=== PATIENT | female | born 1935 | race Caucasian/White ===

== ENCOUNTER 2017-06-17 07:04 | Emergency (ER) | payer BC, MEDICARE, OTHER ==
--- NOTE | 2017-06-17 07:41 | EDM.PDOC ---
ED HPI GENERAL MEDICAL PROBLEM - General Chief Complaint: Lower Extremity Injury/Pain Stated Complaint: FELL YESTERDAY Time Seen by Provider: 06/17/17 07:40 Source of Information: Reports: Patient - History of Present Illness INITIAL COMMENTS - FREE TEXT/NARRATIVE: HISTORY AND PHYSICAL: History of present illness: []Patient slipped and fell in her house last night landing on her right side she complains of right hip pain, she did proceed to go to work at [email or web address] however had to leave early due to pain she presents with her daughter as such, she is able to bear weight standing still but has discomfort she rates 5 out of 10 nonradiating associated with right hip Denies other head injury or loss of consciousness no fever nausea vomiting chills sweats no chest pain shortness breath headache dizziness or palpitation about a urine symptoms Review of systems: As per history of present illness and below otherwise all systems reviewed and negative. Past medical history: As per history of present illness and as reviewed below otherwise noncontributory. Surgical history: As per history of present illness and as reviewed below otherwise noncontributory. Social history: No reported history of drug or alcohol abuse. Family history: As per history of present illness and as reviewed below otherwise noncontributory. Physical exam: HEENT: Atraumatic, normocephalic, pupils reactive, negative for conjunctival pallor or scleral icterus, mucous membranes moist, throat clear, neck supple, nontender, trachea midline. Lungs: Clear to auscultation, breath sounds equal bilaterally, chest nontender. Heart: S1S2, regular, negative for clicks, rubs, or JVD. Abdomen: Soft, nondistended, nontender. Negative for masses or hepatosplenomegaly. Negative for costovertebral tenderness. Pelvis: Stable nontender. 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: Deferred. Rectal: Deferred. Extremities: Atraumatic, negative for cords or calf pain. Neurovascular unremarkable. Neuro: Awake, alert, oriented. Cranial nerves II through XII unremarkable. Cerebellum unremarkable. Motor and sensory unremarkable throughout. Exam nonfocal. Right hip full range of passive motion she does have pain with weightbearing and difficulty ambulating due to pain she has small bruise over the greater trochanter about the size of a thumb print as well as one on the right buttock otherwise limits neurovascularly intact Diagnostics: []Right hip and pelvis Therapeutics: []Patient offered CT in declines as clinically she does have a lot of discomfort appears to be muscle at this time but urged if symptoms persist or return and we'll scan her head or follow-up with primary care in one week for recheck He is also offered admission for strengthening to assist with ADLs she refuses this We did have a walker available here in the ER as a child, she does get around much better with a walker however we could not send her home with or 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 Right Hip Pain Score (Numeric/FACES): 10 - Related Data Allergies Allergy/AdvReac Type Severity Reaction Status Date / Time No Known Allergies Allergy Verified 06/17/17 07:22 Home Meds: Home Meds Flaxseed Oil 1,000 mg PO DAILY 06/30/15 [History] Multivitamin [Multivitamins] 1 tab PO DAILY 06/30/15 [History] Triamterene/Hydrochlorothiazid [Triamterene-HCTZ 37.5-25 MG] 25 - 37.5 tab PO DAILY 06/30/15 [History] Ubidecarenone [Co Q-10] 100 mg PO DAILY 06/30/15 [History] atorvaSTATin Calcium [Atorvastatin Calcium] 10 mg PO DAILY 06/30/15 [History] Fish Oil/[place]-3 Fatty Acids [Fish Oil 1,000 MG] 0 mg PO DAILY 06/17/17 [History ] Past Medical History Other HEENT History: wears glasses, has top and bottom dentures Cardiovascular History: Reports: High Cholesterol, Hypertension Gastrointestinal History: Reports: None 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 History: Reports: None Hematologic History: Reports: Anemia Other Hematologic History: states bleeds easily, had transfusion after hysterectomy 45 yrs ago - Infectious Disease History Infectious Disease History: Reports: Chicken Pox, Measles - Past Surgical History HEENT Surgical History: Reports: Cataract Surgery Cardiovascular Surgical History: Reports: None GI Surgical History: Reports: Appendectomy Female Surgical History: Reports: Hysterectomy Social & Family History - Family History Family Medical History: Noncontributory - Tobacco Use Smoking Status *Q: Current Every Day Smoker Years of Tobacco use: 40 Packs/Tins Daily: 1 - Caffeine Use Caffeine Use: Reports: Coffee Caffeine Use Comment: 1-2pots/day - Recreational Drug Use Recreational Drug Use: No Review of Systems - Review of Systems Review Of Systems: ROS reveals no pertinent complaints other than HPI. ED EXAM, GENERAL - Physical Exam Exam: See Below Course - Vital Signs Last Recorded V/S: Last Vital Signs Temp 36.3 C 06/17/17 07:18 Pulse 73 06/17/17 07:18 Resp 21 H 06/17/17 07:18 BP 113/70 06/17/17 07:18 Pulse Ox 96 06/17/17 07:18 - Orders/Labs/Meds Orders: Active Orders 24 hr Category Date Time Status Hip Min 2V or 3V w Pelvis Rt [CR] Stat Exams 06/17/17 07:38 Ordered Departure - Departure Time of Disposition: 09:09 Disposition: Home, Self-Care 01 Condition: Good Clinical Impression: Right hip pain - Discharge Information Referrals: Jerzy Lin MD [Primary Care Provider] - Forms: ED Department Discharge Additional Instructions: Tylenol No. 3 one to 2 tabs by mouth every 6 when necessary pain #30 no refill Ice 20 minute intervals 3 times daily 7-10 days Return if symptoms persist or worsen Follow-up with primary care in one week Obtain a walker to assist with ambulation through [employer]/ [email or web address] may actually carry walkers here in town for purchase The following information is given to patients seen in the emergency department who are being discharged to home. This information is to outline your options for follow-up care. We provide all patients seen in our emergency department with a follow-up referral. The need for follow-up, as well as the timing and circumstances, are variable depending upon the specifics of your emergency department visit. If you don't have a primary care physician on staff, we will provide you with a referral. We always advise you to contact your personal physician following an emergency department visit to inform them of the circumstance of the visit and for follow-up with them and/or the need for any referrals to a consulting specialist. The emergency department will also refer you to a specialist when appropriate. This referral assures that you have the opportunity for follow-up care with a specialist. All of these measure are taken in an effort to provide you with optimal care, which includes your follow-up. Under all circumstances we always encourage you to contact your private physician who remains a resource for coordinating your care. When calling for follow-up care, please make the office aware that this follow-up is from your recent emergency room visit. If for any reason you are refused follow-up, please contact the [facility] emergency department at and asked to speak to the emergency department charge nurse. - My Orders Last 24 Hours: My Active Orders 06/17/17 07:38 Hip Min 2V or 3V w Pelvis Rt [CR] Stat - Assessment/Plan Last 24 Hours: My Active Orders 06/17/17 07:38 Hip Min 2V or 3V w Pelvis Rt [CR] Stat
[2017-06-17 09:25] VITALS: BP 140/64
--- NOTE | 2017-06-18 13:20 | CR ---
EXAM DATE: 06/17/17 PATIENT'S AGE: 81 Patient: ROLANDO RICHARDSON Facility: [place], [place] : 1935 Study: XRay Extremity [id number]/27/2017 8:25:42 AM Ordering Physician: SUGAR Final Report: HISTORY: Fall. Technique: Frontal pelvis and 2 views of the right hip. Comparison: None. Findings: No fracture or dislocation. Hip joint space is preserved bilaterally. Pubic symphysis degenerative changes. Bilateral sacroiliac joint degenerative changes. Lower lumbar spine degenerative changes. Atherosclerotic calcifications. Gas-filled loops of bowel project over the right inguinal region. Impression: 1. No acute bone abnormality. 2. Gas-filled loops of bowel project over the right inguinal region raising possibility of bowel containing inguinal hernia. Dictated by Surinder Orr MD @ Jun 17 2017 8:47AM (Electronic Signature) Report Signed by Proxy. [email or web address]
== END 2017-06-17 09:24 | disposition home or self-care (01) ==
LOC: MW.ED 07:04
DX: M25.551 Pain in right hip (principal); E78.00 Pure hypercholesterolemia, unspecified; I10 Essential (primary) hypertension; F17.210 Nicotine dependence, cigarettes, uncomplicated; Z86.2 Personal history of diseases of the blood and blood-forming organs and certain disorders involving the immune mechanism; Z98.49 Cataract extraction status, unspecified eye; Z90.49 Acquired absence of other specified parts of digestive tract; Z79.899 Other long term (current) drug therapy; Z90.710 Acquired absence of both cervix and uterus
CPT/HCPCS: 73502-26-RT; 73502-RT; 99283

== ENCOUNTER 2017-06-18 13:00 | Observation (INO) | payer BC, OTHER ==
--- NOTE | 2017-06-18 13:53 | EDM.PDOC ---
ED HPI GENERAL MEDICAL PROBLEM - General Chief Complaint: Lower Extremity Injury/Pain Stated Complaint: PAIN Time Seen by Provider: 06/18/17 13:43 - History of Present Illness INITIAL COMMENTS - FREE TEXT/NARRATIVE: HISTORY AND PHYSICAL: History of present illness: Patient is an 81-year-old white female presents for the second time who was seen recently status post fall for right hip injury she states she continues to have pain in this nearly unable to weight-bear on her right side. She denies any head or neck pain or trauma or other concern apart from a right inguinal hernia that she's had prior but is gotten larger since the fall there's been no nausea no vomiting no increased pain with this just increase in size. Review of systems: As per history of present illness and below otherwise all systems reviewed and negative. Past medical history: As per history of present illness and as reviewed below otherwise noncontributory. Surgical history: As per history of present illness and as reviewed below otherwise noncontributory. Social history: No reported history of drug or alcohol abuse. Family history: As per history of present illness and as reviewed below otherwise noncontributory. Physical exam: HEENT: Atraumatic, normocephalic, pupils reactive, negative for conjunctival pallor or scleral icterus, mucous membranes moist, throat clear, neck supple, nontender, trachea midline. Lungs: Clear to auscultation, breath sounds equal bilaterally, chest nontender. Heart: S1S2, regular, negative for clicks, rubs, or JVD. Abdomen: Soft, nondistended, nontender. Negative for masses or hepatosplenomegaly. Negative for costovertebral tenderness. Patient is noted to have a moderate size right inguinal hernia that is nontender in her right groin this is not reducible there is no erythema or warmth noted Pelvis: Stable nontender. 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: Deferred. Rectal: Deferred. Extremities: No point tenderness she has some generalized discomfort over right hip patient has difficulty weightbearing on her right side and significant difficulty with gait Neuro: Awake, alert, oriented. Cranial nerves II through XII unremarkable. Cerebellum unremarkable. Motor and sensory unremarkable throughout. Exam nonfocal. Diagnostics: CT abdomen and pelvis CT right hip x-ray right femur Therapeutics: To be determined Impression: #1 history of fall #2 acute right hip injury #3 right inguinal hernia Definitive disposition and diagnosis as appropriate pending reevaluation and review of above. - Related Data Allergies Allergy/AdvReac Type Severity Reaction Status Date / Time No Known Allergies Allergy Verified 06/17/17 07:22 Home Meds: Home Meds Flaxseed Oil 1,000 mg PO DAILY 06/30/15 [History] Multivitamin [Multivitamins] 1 tab PO DAILY 06/30/15 [History] Triamterene/Hydrochlorothiazid [Triamterene-HCTZ 37.5-25 MG] 25 - 37.5 tab PO DAILY 06/30/15 [History] Ubidecarenone [Co Q-10] 100 mg PO DAILY 06/30/15 [History] atorvaSTATin Calcium [Atorvastatin Calcium] 10 mg PO DAILY 06/30/15 [History] Fish Oil/[place]-3 Fatty Acids [Fish Oil 1,000 MG] 0 mg PO DAILY 06/17/17 [History ] Past Medical History Other HEENT History: wears glasses, has top and bottom dentures Cardiovascular History: Reports: High Cholesterol, Hypertension Gastrointestinal History: Reports: None 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 History: Reports: None Hematologic History: Reports: Anemia Other Hematologic History: states bleeds easily, had transfusion after hysterectomy 45 yrs ago - Infectious Disease History Infectious Disease History: Reports: Chicken Pox, Measles - Past Surgical History HEENT Surgical History: Reports: Cataract Surgery Cardiovascular Surgical History: Reports: None GI Surgical History: Reports: Appendectomy Female Surgical History: Reports: Hysterectomy Social & Family History - Family History Family Medical History: Noncontributory - Tobacco Use Smoking Status *Q: Current Every Day Smoker Years of Tobacco use: 40 Packs/Tins Daily: 1 - Caffeine Use Caffeine Use: Reports: Coffee Caffeine Use Comment: 1-2pots/day - Recreational Drug Use Recreational Drug Use: No Review of Systems - Review of Systems Review Of Systems: ROS reveals no pertinent complaints other than HPI. ED EXAM, GENERAL - Physical Exam Exam: See Below (See dictation) Course - Vital Signs Last Recorded V/S: Last Vital Signs Temp 36.4 C 06/18/17 13:46 Pulse 81 06/18/17 13:46 Resp 18 06/18/17 13:46 BP 133/86 06/18/17 13:46 Pulse Ox 97 06/18/17 13:46 - Orders/Labs/Meds Orders: Active Orders 24 hr Category Date Time Status EKG Documentation Completion [RC] STAT Care 06/18/17 15:51 Active CBC WITH AUTO DIFF [HEME] Stat Lab 06/18/17 15:51 Ordered COMPREHENSIVE METABOLIC PN,CMP [CHEM] Stat Lab 06/18/17 15:51 Ordered INR,PT,PROTHROMBIN TIME [COAG] Stat Lab 06/18/17 15:51 Ordered Sodium Chloride 0.9% [Saline Flush] Med 06/18/17 15:51 Active 10 ml FLUSH ASDIRECTED PRN Sodium Chloride 0.9% [Saline Flush] Med 06/18/17 15:51 Active 2.5 ml FLUSH ASDIRECTED PRN Saline Lock Insert [OM.PC] Stat Oth 06/18/17 15:51 Ordered Medication Orders Sodium Chloride (Saline Flush) 10 ml FLUSH ASDIRECTED PRN PRN Reason: Keep Vein Open Sodium Chloride (Saline Flush) 2.5 ml FLUSH ASDIRECTED PRN PRN Reason: Keep Vein Open Meds: Medications Generic Name Dose Route Start Last Admin Trade Name Freq PRN Reason Stop Dose Admin Sodium Chloride 10 ml 06/18/17 15:51 Saline Flush FLUSH ASDIRECTED PRN Keep Vein Open Sodium Chloride 2.5 ml 06/18/17 15:51 Saline Flush FLUSH ASDIRECTED PRN Keep Vein Open Departure - Departure Time of Disposition: 16:01 Disposition: Admitted As Inpatient 67 Condition: Good Clinical Impression: Hip injury, Inguinal hernia - Discharge Information Referrals: Jerzy Lin MD [Primary Care Provider] - Forms: ED Department Discharge - My Orders Last 24 Hours: My Active Orders 06/18/17 15:51 EKG Documentation Completion [RC] STAT CBC WITH AUTO DIFF [HEME] Stat COMPREHENSIVE METABOLIC PN,CMP [CHEM] Stat INR,PT,PROTHROMBIN TIME [COAG] Stat Sodium Chloride 0.9% [Saline Flush] 10 ml FLUSH ASDIRECTED PRN Sodium Chloride 0.9% [Saline Flush] 2.5 ml FLUSH ASDIRECTED PRN Saline Lock Insert [OM.PC] Stat - Assessment/Plan Last 24 Hours: My Active Orders 06/18/17 15:51 EKG Documentation Completion [RC] STAT CBC WITH AUTO DIFF [HEME] Stat COMPREHENSIVE METABOLIC PN,CMP [CHEM] Stat INR,PT,PROTHROMBIN TIME [COAG] Stat Sodium Chloride 0.9% [Saline Flush] 10 ml FLUSH ASDIRECTED PRN Sodium Chloride 0.9% [Saline Flush] 2.5 ml FLUSH ASDIRECTED PRN Saline Lock Insert [OM.PC] Stat
--- NOTE | 2017-06-18 14:48 | CT ---
CT of the abdomen and pelvis without contrast. HISTORY: Pain TECHNIQUE: Axial CT images were obtained of the abdomen and pelvis without contrast. Coronal and sagi ttal reconstructions obtained. FINDINGS: The lung bases are clear, no pleural effusion. Likely tiny hiatal hernia. The liver, spleen, and pancreas appear unremarkable for noncontrast examination. Bilateral adrenal ad enomas are noted. The gallbladder appears normal. There is no bulky retroperitoneal lymphadenopathy. No abdominal ascites. There are no calcifications noted within the kidneys or along the courses of the ureters bilaterally. There is a 3 cm left renal cortical cysts noted. The large and small bowel are normal in caliber without evidence of obstruction. Moderate diverticulo sis without evidence of diverticulitis. There is no bulky pelvic lymphadenopathy. No free fluid. No f ree air. The urinary bladder appears normal. There is a right inguinal hernia containing small bowel. The visualized osseous structures appear osteopenic. Trace anterolisthesis of L4 on L5. The right hip appears intact. IMPRESSION: 1. No acute findings within the abdomen or pelvis. 2. Diverticulosis without evidence of diverticulitis. 3. Small right inguinal hernia containing small bowel. 4. Bilateral adrenal adenomas.
--- NOTE | 2017-06-18 14:57 | CR ---
EXAMINATION: Right femur HISTORY: Pain COMPARISON: None TECHNIQUE: AP and lateral views FINDINGS: There is no acute osseous abnormality, dislocation, or fracture. The hip joint space appear s preserved. No suprapatellar joint effusion. Prominent osteoarthritic changes noted within the right knee. Overall the osseous structures appear osteopenic. Mild vascular calcifications. IMPRESSION: 1. No acute osseous abdomen identified. 2. Moderate osteoarthritic changes noted within the right knee.
[2017-06-18] MEDS ORDERED: Sodium Chloride 0.9% 2.5 ML Syringe FLUSH PRN (15:51)
[2017-06-18] MEDS ORDERED: Sodium Chloride 0.9% 10 ML Syringe FLUSH PRN (15:51)
[2017-06-18] MEDS ORDERED: Ibuprofen 400 MG Tab PO PRN (19:56)
[2017-06-18] MEDS ORDERED: Morphine 2 MG/ML Syringe IVPUSH PRN (19:56)
[2017-06-18] MEDS ORDERED: Ondansetron 4 MG/2 ML SDV IVPUSH PRN (19:56)
[2017-06-18] MEDS ORDERED: Acetaminophen 325 MG Tab PO PRN (19:56)
--- NOTE | 2017-06-18 20:03 | PCM.HP ---
H&P History of Present Illness - General Admit Problem/Dx: Admission Diagnosis/Problem Admission Diagnosis/Problem Hip injury - History of Present Illness Initial Comments - Free Text/Narative: 81 yo female who fell on her right hip three days ago. She has reported difficulty walking due to pain in her right hip. She has to bend over and hold on to something in order to ambulate. She was evaluated in the ED with femur x- ray and pelvic CT that was unremarkable. Right Groin Pain Score (Numeric/FACES): 8 - Related Data Allergies/Adverse Reactions: Allergies Allergy/AdvReac Type Severity Reaction Status Date / Time No Known Allergies Allergy Verified 06/17/17 07:22 Home Medications: Home Meds Flaxseed Oil 1,000 mg PO DAILY 06/30/15 [History] Multivitamin [Multivitamins] 1 tab PO DAILY 06/30/15 [History] Triamterene/Hydrochlorothiazid [Triamterene-HCTZ 37.5-25 MG] 25 - 37.5 tab PO DAILY 06/30/15 [History] Ubidecarenone [Co Q-10] 100 mg PO DAILY 06/30/15 [History] atorvaSTATin Calcium [Atorvastatin Calcium] 10 mg PO DAILY 06/30/15 [History] Fish Oil/[place]-3 Fatty Acids [Fish Oil 1,000 MG] 0 mg PO DAILY 06/17/17 [History ] Acetaminophen [Tylenol] 650 mg PO Q4H PRN tablet 06/19/17 [Rx] Ibuprofen [Motrin] 400 mg PO Q6H PRN tablet 06/19/17 [Rx] traMADol [Ultram] 50 mg PO Q6H PRN #14 tablet 06/19/17 [Rx] Past Medical History Other HEENT History: wears glasses, has top and bottom dentures Cardiovascular History: Reports: High Cholesterol, Hypertension Gastrointestinal History: Reports: None 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 History: Reports: None Hematologic History: Reports: Anemia Other Hematologic History: states bleeds easily, had transfusion after hysterectomy 45 yrs ago - Infectious Disease History Infectious Disease History: Reports: Chicken Pox, Measles - Past Surgical History HEENT Surgical History: Reports: Cataract Surgery Cardiovascular Surgical History: Reports: None GI Surgical History: Reports: Appendectomy Female Surgical History: Reports: Hysterectomy Social & Family History - Family History Family Medical History: Noncontributory - Tobacco Use Smoking Status *Q: Current Every Day Smoker Years of Tobacco use: 40 Packs/Tins Daily: 1 - Caffeine Use Caffeine Use: Reports: Coffee Caffeine Use Comment: 1-2pots/day - Recreational Drug Use Recreational Drug Use: No H&P Review of Systems - Review of Systems: Review Of Systems: ROS reveals no pertinent complaints other than HPI. Exam - Exam Exam: See Below - Vital Signs Vital Signs: Last Vital Signs Temp 36.1 C 06/18/17 18:30 Pulse 84 06/18/17 18:30 Resp 16 06/18/17 18:30 BP 109/74 06/18/17 18:30 Pulse Ox 97 06/18/17 18:30 Weight: 77.111 kg - Exam General: Alert, Oriented, 4 HEENT: Mucosa Moist & [place]: Supple Lungs: Clear to Auscultation, Normal Respiratory Effort Cardiovascular: Regular Rate, Regular Rhythm GI/Abdominal Exam: Normal Bowel Sounds, Soft, Non-Tender, Pelvis Stable Back Exam: Normal Inspection, Full Range of Motion Extremities: Normal Inspection, No Pedal Edema - Patient Data Lab Results Last 24 hrs: Laboratory Results - last 24 hr 06/18/17 06/18/17 06/18/17 Range/Units 16:11 16:11 16:11 WBC 5.51 (4.0-11.0) K/uL RBC 4.75 (4.30-5.90) M/uL Hgb 14.6 (12.0-16.0) g/dL Hct 42.3 (36.0-46.0) % MCV 89.1 (80.0-98.0) fL MCH 30.7 (27.0-32.0) pg MCHC 34.5 (31.0-37.0) g/dL RDW Std Deviation 48.1 (28.0-62.0) fl RDW Coeff of Alexis 15 (11.0-15.0) % Plt Count 211 (150-400) K/uL MPV 11.30 (7.40-12.00) fL Neut % (Auto) 71.9 (48.0-80.0) % Lymph % (Auto) 16.7 (16.0-40.0) % [place] % (Auto) 8.9 (0.0-15.0) % Eos % (Auto) 2.0 (0.0-7.0) % Baso % (Auto) 0.5 (0.0-1.5) % Neut # (Auto) 4.0 (1.4-5.7) K/uL Lymph # (Auto) 0.9 (0.6-2.4) K/uL [place] # (Auto) 0.5 (0.0-0.8) K/uL Eos # (Auto) 0.1 (0.0-0.7) K/uL Baso # (Auto) 0.0 (0.0-0.1) K/uL Nucleated RBC % 0.0 /100WBC Nucleated RBCs # 0 K/uL INR 0.99 (0.86-1.11) Sodium 137 (136-146) mmol/L Potassium 3.5 (3.5-5.1) mmol/L Chloride 99 (98-110) mmol/L Carbon Dioxide 26 (21-31) mmol/L BUN 28 H (6.0-23.0) mg/dL Creatinine 1.5 (0.6-1.5) mg/dL Est Cr Clr Drug Dosing 29.09 mL/min Estimated GFR (MDRD) 33.4 ml/min Glucose 82 (60-110) mg/dL Calcium 9.6 (8.8-10.8) mg/dL Total Bilirubin 0.8 (0.1-1.5) mg/dL AST 23 (5-40) IU/L ALT 19 (8-54) IU/L Alkaline Phosphatase 95 (40-150) Total Protein 7.9 (6.0-8.0) g/dL Albumin 4.5 (3.4-4.8) g/dL Globulin 3.4 (2.0-3.5) g/dL Albumin/Globulin Ratio 1.3 (1.3-2.8) Urine Color Urine Appearance Urine pH (5.0-8.0) Ur Specific [place] (1.001-1.035) Urine Protein (NEGATIVE) mg/dL Urine Glucose (UA) (NEGATIVE) mg/dL Urine Ketones (NEGATIVE) mg/dL Urine Occult Blood (NEGATIVE) Urine Nitrite (NEGATIVE) Urine Bilirubin (NEGATIVE) Urine Urobilinogen (<2.0) EU/dL Ur Leukocyte Esterase (NEGATIVE) Urine RBC (0-2/HPF) Urine WBC (0-5/HPF) Ur Epithelial Cells (NONE-FEW) Amorphous Sediment (NEGATIVE) Urine Bacteria (NEGATIVE) 06/18/17 Range/Units 16:48 WBC (4.0-11.0) K/uL RBC (4.30-5.90) M/uL Hgb (12.0-16.0) g/dL Hct (36.0-46.0) % MCV (80.0-98.0) fL MCH (27.0-32.0) pg MCHC (31.0-37.0) g/dL RDW Std Deviation (28.0-62.0) fl RDW Coeff of Alexis (11.0-15.0) % Plt Count (150-400) K/uL MPV (7.40-12.00) fL Neut % (Auto) (48.0-80.0) % Lymph % (Auto) (16.0-40.0) % [place] % (Auto) (0.0-15.0) % Eos % (Auto) (0.0-7.0) % Baso % (Auto) (0.0-1.5) % Neut # (Auto) (1.4-5.7) K/uL Lymph # (Auto) (0.6-2.4) K/uL [place] # (Auto) (0.0-0.8) K/uL Eos # (Auto) (0.0-0.7) K/uL Baso # (Auto) (0.0-0.1) K/uL Nucleated RBC % /100WBC Nucleated RBCs # K/uL INR (0.86-1.11) Sodium (136-146) mmol/L Potassium (3.5-5.1) mmol/L Chloride (98-110) mmol/L Carbon Dioxide (21-31) mmol/L BUN (6.0-23.0) mg/dL Creatinine (0.6-1.5) mg/dL Est Cr Clr Drug Dosing mL/min Estimated GFR (MDRD) ml/min Glucose (60-110) mg/dL Calcium (8.8-10.8) mg/dL Total Bilirubin (0.1-1.5) mg/dL AST (5-40) IU/L ALT (8-54) IU/L Alkaline Phosphatase (40-150) Total Protein (6.0-8.0) g/dL Albumin (3.4-4.8) g/dL Globulin (2.0-3.5) g/dL Albumin/Globulin Ratio (1.3-2.8) Urine Color YELLOW Urine Appearance CLEAR Urine pH 5.5 (5.0-8.0) Ur Specific [place] 1.020 (1.001-1.035) Urine Protein NEGATIVE (NEGATIVE) mg/dL Urine Glucose (UA) NEGATIVE (NEGATIVE) mg/dL Urine Ketones NEGATIVE (NEGATIVE) mg/dL Urine Occult Blood NEGATIVE (NEGATIVE) Urine Nitrite NEGATIVE (NEGATIVE) Urine Bilirubin NEGATIVE (NEGATIVE) Urine Urobilinogen 0.2 (<2.0) EU/dL Ur Leukocyte Esterase NEGATIVE (NEGATIVE) Urine RBC 0-1 (0-2/HPF) Urine WBC 0-1 (0-5/HPF) Ur Epithelial Cells MODERATE (NONE-FEW) Amorphous Sediment FEW (NEGATIVE) Urine Bacteria RARE (NEGATIVE) Result Diagrams: 06/18/17 16:11 06/18/17 16:11 *Q Meaningful Use (ADM) - VTE *Q VTE Criteria *Q: - Stroke *Q Stroke Criteria *Q: - AMI *Q AMI Criteria *Q: Problem List Initiated/Reviewed/Updated: Yes Orders Last 24hrs: Active Orders 24 hr Category Date Time Status Antiembolic Devices [RC] PER UNIT ROUTINE Care 06/18/17 19:57 Ordered Intake and Output [RC] QSHIFT Care 06/18/17 19:56 Ordered Oxygen Therapy [RC] PRN Care 06/18/17 19:56 Ordered Up With Assistance [RC] ASDIRECTED Care 06/18/17 19:56 Ordered VTE/DVT Education [RC] PER UNIT ROUTINE Care 06/18/17 19:56 Ordered Vital Signs [RC] Q4H Care 06/18/17 19:56 Ordered PT Evaluation and Treatment [CONS] Routine Cons 06/18/17 19:58 Ordered Regular Diet [DIET] Diet 06/18/17 Breakfast Ordered Acetaminophen [Tylenol] Med 06/18/17 19:56 Ordered 650 mg PO Q4H PRN HCTZ/Triamterene [Maxzide 25-37.5 MG] Med 06/19/17 09:00 Ordered 25 - 37.5 tab PO DAILY Ibuprofen [Motrin] Med 08/28/17 19:56 Ordered 400 mg PO Q6H PRN Morphine Med 06/18/17 19:56 Ordered 2 mg IVPUSH Q2H PRN Ondansetron [Zofran] Med 06/18/17 19:56 Ordered 4 mg IVPUSH Q4H PRN atorvaSTATin [Lipitor] Med 06/19/17 09:00 Ordered 10 mg PO DAILY traMADol [Ultram] Med 06/18/17 19:58 Ordered 50 mg PO Q6H PRN Sequential Compression Device [OM.PC] Per Unit Routine Oth 06/18/17 19:56 Ordered Resuscitation Status Routine Resus Stat 06/18/17 19:56 Ordered Medication Orders Acetaminophen (Tylenol) 650 mg PO Q4H PRN PRN Reason: Pain (Mild 1-3)/fever Ibuprofen (Motrin) 400 mg PO Q6H PRN PRN Reason: Pain (mild 1-3) Morphine Sulfate (Morphine) 2 mg IVPUSH Q2H PRN PRN Reason: Pain (severe 7-10) Stop: 06/19/17 19:57 Ondansetron HCl (Zofran) 4 mg IVPUSH Q4H PRN PRN Reason: Nausea Sodium Chloride (Saline Flush) 10 ml FLUSH ASDIRECTED PRN PRN Reason: Keep Vein Open Sodium Chloride (Saline Flush) 2.5 ml FLUSH ASDIRECTED PRN PRN Reason: Keep Vein Open Tramadol HCl (Ultram) 50 mg PO Q6H PRN PRN Reason: Pain Assessment/Plan Comment:: 81 yo female with right hip contusion. She was observed overnight and is walking this morning without difficulty. Physical therapy was consulted and recommended wheeled walker. Patient is requesting discharge. She was instructed to take Ibuprofen and Tylenol for pain. She was also given a prescription of tramadol 50mg q6h prn #14. Dr. Bailey was also consulted this admission regarding right inguinal hernia. He recommend outpatient follow up with him.
[2017-06-18] MEDS: traMADol 50 MG Tab PO PRN (20:43)
--- NOTE | 2017-06-19 02:33 | CONS ---
DATE OF CONSULTATION: 06/18/2017 DATE OF : 1935 PRIMARY CARE PHYSICIAN: Jerzy Lin M.D. Consult from ER, Dr. Hardin. CONCERNING QUESTION: Right inguinal hernia. HISTORY OF PRESENT ILLNESS: The patient is an 81-year-old lady, fell 3-4 days ago and then developed abdominal pain and seen in the emergency room. Workup included CAT scan and plain film and saw a large right inguinal hernia and Surgery was then consulted. The patient currently denied any pain. The patient remarked that she noticed bulging on her right groin area for about one year, but has never been so big, and today, she is concerned about the big bulging not for the pain, although she was complaining about pain when she 1st arrived in the emergency room. She denied nausea and vomiting and denied poor appetite and denied weight loss without intention and the patient is a smoker with constant smoker coughing. She has regular oral intake and regular bowel movement and last oral intake was before emergency room visit and she kept it all down. No nausea or vomiting. Last bowel movement was also prior to the emergency room visit and the patient said it is a well-formed stool. ALLERGIES: Please refer nursing note for details. MEDICATIONS: Please refer nursing note for details. PAST MEDICAL HISTORY: Denied diabetes, [place], CVA, or hypertension. PAST SURGICAL HISTORY: Normal vaginal delivery x2 and total abdominal hysterectomy, appendicolith and also oophorectomy and also has colonoscopy done a few years ago, was reportedly normal. PHYSICAL EXAMINATION: GENERAL: A very pleasant nice lady, much younger than stated age, in no acute distress. HEENT: Normocephalic, atraumatic. Sclerae anicteric. LUNGS: Clear to auscultation. HEART: Regular rate and rhythm. ABDOMEN: Soft, nondistended. No pulsating, tender midline abdominal structure. A well-healed Pfannenstiel incision. No hernia appreciated. Nontender. There is a large bulge on to the right groin and all the way extend to the labia majora, but is easily reduced, it took less than 5 seconds, it was reduced and there was no hernia. IMPRESSION AND PLAN: CAT scan suggested a wide base right inguinal hernia with bowel, but it was easily reduced and teach patient how to reduce by hand and there is no surgical plan at this stage. The patient is nontender and no nausea, vomiting, and asymptomatic. Touch by size of the hernia was 8 cm wide mouth, risk of incarceration is not high. However, the patient is asymptomatic and learnt how to reduce the hernia. The patient may not need surgical repair. Surgical repair may be more risky than benefit. We will continue to develop the case, and for the time being, is reducible inguinal hernia, and if it becomes unreducible and abdominal pain and nausea and vomiting, please re-consult otherwise. If the patient is discharged, please have her follow up in my office 1-2 weeks from today. As always, thank you for the kind referral. JOSE ALEJANDRO / ELVA /[id number]
[2017-06-19] MEDS: traMADol 50 MG Tab PO PRN (06:39)
[2017-06-19] MEDS ORDERED: Hydrochlorothiazide/Triamterene 25-37.5 Tab PO SCH (09:00)
[2017-06-19] MEDS ORDERED: atorvaSTATin 10 MG Tab PO SCH (09:00)
[2017-06-19 10:04] VITALS: BP 138/73
--- NOTE | 2017-06-19 12:08 | PCM.SURGPN ---
- General Info Date of Service: 06/19/17 POD#: 1 Post-Op Diagnosis: hernia - Review of Systems Gastrointestinal: Reports: No Symptoms (tamiko po diet) - Patient Data Vitals - Most Recent: Last Vital Signs Temp 98.1 F 06/19/17 08:00 Pulse 57 L 06/19/17 08:00 Resp 16 06/19/17 08:00 BP 138/73 06/19/17 08:00 Pulse Ox 95 06/19/17 08:00 Weight - Most Recent: 170 lb I&O - Last 24 Hours: Intake & Output 06/18/17 06/19/17 06/19/17 22:59 06:59 14:59 Output Total 600 450 Balance -600 -450 Lab Results Last 24 Hrs: Laboratory Results - last 24 hr 06/18/17 06/18/17 06/18/17 Range/Units 16:11 16:11 16:11 WBC 5.51 (4.0-11.0) K/uL RBC 4.75 (4.30-5.90) M/uL Hgb 14.6 (12.0-16.0) g/dL Hct 42.3 (36.0-46.0) % MCV 89.1 (80.0-98.0) fL MCH 30.7 (27.0-32.0) pg MCHC 34.5 (31.0-37.0) g/dL RDW Std Deviation 48.1 (28.0-62.0) fl RDW Coeff of Alexis 15 (11.0-15.0) % Plt Count 211 (150-400) K/uL MPV 11.30 (7.40-12.00) fL Neut % (Auto) 71.9 (48.0-80.0) % Lymph % (Auto) 16.7 (16.0-40.0) % [place] % (Auto) 8.9 (0.0-15.0) % Eos % (Auto) 2.0 (0.0-7.0) % Baso % (Auto) 0.5 (0.0-1.5) % Neut # (Auto) 4.0 (1.4-5.7) K/uL Lymph # (Auto) 0.9 (0.6-2.4) K/uL [place] # (Auto) 0.5 (0.0-0.8) K/uL Eos # (Auto) 0.1 (0.0-0.7) K/uL Baso # (Auto) 0.0 (0.0-0.1) K/uL Nucleated RBC % 0.0 /100WBC Nucleated RBCs # 0 K/uL INR 0.99 (0.86-1.11) Sodium 137 (136-146) mmol/L Potassium 3.5 (3.5-5.1) mmol/L Chloride 99 (98-110) mmol/L Carbon Dioxide 26 (21-31) mmol/L BUN 28 H (6.0-23.0) mg/dL Creatinine 1.5 (0.6-1.5) mg/dL Est Cr Clr Drug Dosing 29.09 mL/min Estimated GFR (MDRD) 33.4 ml/min Glucose 82 (60-110) mg/dL Calcium 9.6 (8.8-10.8) mg/dL Total Bilirubin 0.8 (0.1-1.5) mg/dL AST 23 (5-40) IU/L ALT 19 (8-54) IU/L Alkaline Phosphatase 95 (40-150) Total Protein 7.9 (6.0-8.0) g/dL Albumin 4.5 (3.4-4.8) g/dL Globulin 3.4 (2.0-3.5) g/dL Albumin/Globulin Ratio 1.3 (1.3-2.8) Urine Color Urine Appearance Urine pH (5.0-8.0) Ur Specific [place] (1.001-1.035) Urine Protein (NEGATIVE) mg/dL Urine Glucose (UA) (NEGATIVE) mg/dL Urine Ketones (NEGATIVE) mg/dL Urine Occult Blood (NEGATIVE) Urine Nitrite (NEGATIVE) Urine Bilirubin (NEGATIVE) Urine Urobilinogen (<2.0) EU/dL Ur Leukocyte Esterase (NEGATIVE) Urine RBC (0-2/HPF) Urine WBC (0-5/HPF) Ur Epithelial Cells (NONE-FEW) Amorphous Sediment (NEGATIVE) Urine Bacteria (NEGATIVE) 06/18/17 Range/Units 16:48 WBC (4.0-11.0) K/uL RBC (4.30-5.90) M/uL Hgb (12.0-16.0) g/dL Hct (36.0-46.0) % MCV (80.0-98.0) fL MCH (27.0-32.0) pg MCHC (31.0-37.0) g/dL RDW Std Deviation (28.0-62.0) fl RDW Coeff of Alexis (11.0-15.0) % Plt Count (150-400) K/uL MPV (7.40-12.00) fL Neut % (Auto) (48.0-80.0) % Lymph % (Auto) (16.0-40.0) % [place] % (Auto) (0.0-15.0) % Eos % (Auto) (0.0-7.0) % Baso % (Auto) (0.0-1.5) % Neut # (Auto) (1.4-5.7) K/uL Lymph # (Auto) (0.6-2.4) K/uL [place] # (Auto) (0.0-0.8) K/uL Eos # (Auto) (0.0-0.7) K/uL Baso # (Auto) (0.0-0.1) K/uL Nucleated RBC % /100WBC Nucleated RBCs # K/uL INR (0.86-1.11) Sodium (136-146) mmol/L Potassium (3.5-5.1) mmol/L Chloride (98-110) mmol/L Carbon Dioxide (21-31) mmol/L BUN (6.0-23.0) mg/dL Creatinine (0.6-1.5) mg/dL Est Cr Clr Drug Dosing mL/min Estimated GFR (MDRD) ml/min Glucose (60-110) mg/dL Calcium (8.8-10.8) mg/dL Total Bilirubin (0.1-1.5) mg/dL AST (5-40) IU/L ALT (8-54) IU/L Alkaline Phosphatase (40-150) Total Protein (6.0-8.0) g/dL Albumin (3.4-4.8) g/dL Globulin (2.0-3.5) g/dL Albumin/Globulin Ratio (1.3-2.8) Urine Color YELLOW Urine Appearance CLEAR Urine pH 5.5 (5.0-8.0) Ur Specific [place] 1.020 (1.001-1.035) Urine Protein NEGATIVE (NEGATIVE) mg/dL Urine Glucose (UA) NEGATIVE (NEGATIVE) mg/dL Urine Ketones NEGATIVE (NEGATIVE) mg/dL Urine Occult Blood NEGATIVE (NEGATIVE) Urine Nitrite NEGATIVE (NEGATIVE) Urine Bilirubin NEGATIVE (NEGATIVE) Urine Urobilinogen 0.2 (<2.0) EU/dL Ur Leukocyte Esterase NEGATIVE (NEGATIVE) Urine RBC 0-1 (0-2/HPF) Urine WBC 0-1 (0-5/HPF) Ur Epithelial Cells MODERATE (NONE-FEW) Amorphous Sediment FEW (NEGATIVE) Urine Bacteria RARE (NEGATIVE) Med Orders - Current: Current Medications Acetaminophen (Tylenol) 650 mg PO Q4H PRN PRN Reason: Pain (Mild 1-3)/fever Atorvastatin Calcium (Lipitor) 10 mg PO DAILY [facility] Last Admin: 06/19/17 09:51 Dose: 10 mg Ibuprofen (Motrin) 400 mg PO Q6H PRN PRN Reason: Pain (mild 1-3) Morphine Sulfate (Morphine) 2 mg IVPUSH Q2H PRN PRN Reason: Pain (severe 7-10) Stop: 06/19/17 19:57 Ondansetron HCl (Zofran) 4 mg IVPUSH Q4H PRN PRN Reason: Nausea Sodium Chloride (Saline Flush) 10 ml FLUSH ASDIRECTED PRN PRN Reason: Keep Vein Open Sodium Chloride (Saline Flush) 2.5 ml FLUSH ASDIRECTED PRN PRN Reason: Keep Vein Open Tramadol HCl (Ultram) 50 mg PO Q6H PRN PRN Reason: Pain Last Admin: 06/19/17 06:39 Dose: 50 mg Triamterene/HCTZ (Maxzide 25-37.5 Mg) 1 each PO DAILY [facility] Last Admin: 06/19/17 09:51 Dose: 1 each - Exam GI/Abdominal Exam: Normal Bowel Sounds, Soft, Non-Tender - Problem List Review Problem List Initiated/Reviewed/Updated: Yes - My Orders Last 24 Hours: Active Orders 24 hr Category Date Time Status Admission Status [Patient Status] [ADT] Routine ADT 06/19/17 06:53 Active Antiembolic Devices [RC] PER UNIT ROUTINE Care 06/18/17 19:57 Active Intake and Output [RC] QSHIFT Care 06/18/17 19:56 Active Oxygen Therapy [RC] PRN Care 06/18/17 19:56 Active Ready for Discharge [RC] PER UNIT ROUTINE Care 06/19/17 10:56 Active Up With Assistance [RC] ASDIRECTED Care 06/18/17 19:56 Active VTE/DVT Education [RC] PER UNIT ROUTINE Care 06/18/17 19:56 Active Vital Signs [RC] Q4H Care 06/18/17 19:56 Active PT Evaluation and Treatment [CONS] Routine Cons 06/18/17 19:58 Active Acetaminophen [Tylenol] Med 06/18/17 19:56 Active 650 mg PO Q4H PRN HCTZ/Triamterene [Maxzide 25-37.5 MG] Med 06/19/17 09:00 Active 1 each PO DAILY Ibuprofen [Motrin] Med 06/18/17 19:56 Active 400 mg PO Q6H PRN Morphine Med 06/18/17 19:56 Active 2 mg IVPUSH Q2H PRN Ondansetron [Zofran] Med 06/18/17 19:56 Active 4 mg IVPUSH Q4H PRN atorvaSTATin [Lipitor] Med 06/19/17 09:00 Active 10 mg PO DAILY traMADol [Ultram] Med 06/18/17 19:58 Active 50 mg PO Q6H PRN Sequential Compression Device [OM.PC] Per Unit Routine Oth 06/18/17 19:56 Ordered Resuscitation Status Routine Resus Stat 06/18/17 19:56 Ordered Medication Orders Acetaminophen (Tylenol) 650 mg PO Q4H PRN PRN Reason: Pain (Mild 1-3)/fever Atorvastatin Calcium (Lipitor) 10 mg PO DAILY [facility] Last Admin: 06/19/17 09:51 Dose: 10 mg Ibuprofen (Motrin) 400 mg PO Q6H PRN PRN Reason: Pain (mild 1-3) Morphine Sulfate (Morphine) 2 mg IVPUSH Q2H PRN PRN Reason: Pain (severe 7-10) Stop: 06/19/17 19:57 Ondansetron HCl (Zofran) 4 mg IVPUSH Q4H PRN PRN Reason: Nausea Sodium Chloride (Saline Flush) 10 ml FLUSH ASDIRECTED PRN PRN Reason: Keep Vein Open Sodium Chloride (Saline Flush) 2.5 ml FLUSH ASDIRECTED PRN PRN Reason: Keep Vein Open Tramadol HCl (Ultram) 50 mg PO Q6H PRN PRN Reason: Pain Last Admin: 06/19/17 06:39 Dose: 50 mg Admin: 06/18/17 20:43 Dose: 50 mg Triamterene/HCTZ (Maxzide 25-37.5 Mg) 1 each PO DAILY [facility] Last Admin: 06/19/17 09:51 Dose: 1 each - Assessment Assessment (Free Text/Narrative):: large, wide mouth ing hernia on r, easily reducible, low risk for strangulation ; ok to be discharge home from surg standpoint; tamiko diet, abd soft, nontender; if dc, fu w me prn or 1 - 2 wks - Plan Plan (Free Text/Narrative):: large, wide mouth ing hernia on r, easily reducible, low risk for strangulation ; ok to be discharge home from surg standpoint; tamiko diet, abd soft, nontender; if dc, fu w me prn or 1 - 2 wks
== END 2017-06-19 12:30 | disposition home or self-care (01) ==
LOC: MW.ED 13:00 → MW.OB 16:03
PROVIDERS: ADMIT Internal Medicine; ATTEND Internal Medicine
DX: S70.01XA Contusion of right hip, initial encounter (principal); E78.00 Pure hypercholesterolemia, unspecified; I10 Essential (primary) hypertension; D64.9 Anemia, unspecified; Z90.710 Acquired absence of both cervix and uterus; F17.210 Nicotine dependence, cigarettes, uncomplicated; Z79.899 Other long term (current) drug therapy
CPT/HCPCS: 36415; 73552; 74176; 80053; 81001; 85025; 85610; 93005; 97161; 99285; A9270; G0378; 99284

== ENCOUNTER 2017-06-26 09:25 | Emergency (ER) | payer BC, OTHER ==
--- NOTE | 2017-06-26 10:25 | EDM.PDOC ---
ED HPI GENERAL MEDICAL PROBLEM - General Chief Complaint: Abdominal Pain Stated Complaint: HERNIA Time Seen by Provider: 06/26/17 09:59 - History of Present Illness INITIAL COMMENTS - FREE TEXT/NARRATIVE: HISTORY AND PHYSICAL: History of present illness: The patient is an 81-year-old female with a history of hypertension and hypercholesterolemia who was admitted here June 18 to June 19 after having a fall 3 days prior on June 15 onto her right hip and she was concerned about pain at her hip as well as a lump in her right groin. Patient was evaluated in the ER and on this admission with x-rays and CT scan of the abdomen and pelvis which revealed no evidence of any hip bony injury but did reveal a large right inguinal hernia and surgery was consulted. He evaluated the patient and felt that the hernia was very broad-based and easily reduced and showed the patient had a reducible herself. He scheduled a follow-up with her in clinic and the family member tells me that was scheduled for July 02. The patient presents today stating that the bruising on her right hip is improving and the bone no longer hurts but that the hernia is causing her discomfort and she is having difficulty walking and standing and that it keeps going in and out. She is eating and drinking normally without vomiting or diarrhea and has normal bowel movements and has had no fever chills or other abdominal complaints. She otherwise has no other complaints. The patient did not receive any hernia belt here upon discharge the hospital and the family member says that they went to [facility] and purchased one which does not fit properly and they cannot return it and they are very frustrated. 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 Review of systems: As per history of present illness and below otherwise all systems reviewed and negative. Past medical history: As per history of present illness and as reviewed below otherwise noncontributory. Surgical history: As per history of present illness and as reviewed below otherwise noncontributory. Social history: No reported history of drug or alcohol abuse. Family history: As per history of present illness and as reviewed below otherwise noncontributory. Physical exam: General: Well-developed well-nourished female who is nontoxic and vital signs reviewed by me. HEENT: Atraumatic, normocephalic, negative for conjunctival pallor or scleral icterus, mucous membranes moist, throat clear, neck supple, nontender, trachea midline. Lungs: Clear to auscultation, breath sounds equal bilaterally, chest nontender. Heart: S1S2, regular rate and rhythm no overt murmurs. Abdomen: Soft, nondistended, nontender. Negative for masses or hepatosplenomegaly. At the right inguinal area there is a small soft easily reducible inguinal hernia which is nontender on palpation. Bowel sounds are normoactive. Pelvis: Stable nontender. 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: Deferred. Rectal: Deferred. Extremities: Atraumatic, negative for cords or calf pain. Neurovascular unremarkable. Neuro: Awake, alert, oriented. Cranial nerves II through XII unremarkable. Cerebellum unremarkable. Motor and sensory unremarkable throughout. Exam nonfocal. Diagnostics: [] Therapeutics: Hernia belt I discussed with the patient and her family member at bedside that despite them contacting the clinic today and being referred back to the ER for evaluation that Dr. Bailey would not doing emergent surgery for this hernia as it is not incarcerated or entrapped and it is easily reducible. We have contacted the clinic and move her appointment up from July 02 until tomorrow at 9:15 AM and the patient is happy with that. We will attempt to get a hernia belt here that is properly fitting that could give her some support. The patient is still concerned because she has this discomfort when she is moving and walking and I tried to reassure her that this would come and go until the hernia was repaired and that we would do our best to find her a hernia belt that would work. I've again advised her for resting and not going to work and to keep that follow-up appointment tomorrow. I discussed this case with her primary physician Dr. Lin as he will be seeing her in the clinic for follow-up and I want him to be aware of their frustration and concerns. Impression: Right inguinal hernia stable Definitive disposition and diagnosis as appropriate pending reevaluation and review of above. right lower abdomen Pain Score (Numeric/FACES): 9 - Related Data Allergies Allergy/AdvReac Type Severity Reaction Status Date / Time No Known Allergies Allergy Verified 06/26/17 09:40 Home Meds: Home Meds Flaxseed Oil 1,000 mg PO DAILY 06/30/15 [History] Multivitamin [Multivitamins] 1 tab PO DAILY 06/30/15 [History] Triamterene/Hydrochlorothiazid [Triamterene-HCTZ 37.5-25 MG] 25 - 37.5 tab PO DAILY 06/30/15 [History] Ubidecarenone [Co Q-10] 100 mg PO DAILY 06/30/15 [History] atorvaSTATin Calcium [Atorvastatin Calcium] 10 mg PO DAILY 06/30/15 [History] Fish Oil/[place]-3 Fatty Acids [Fish Oil 1,000 MG] 0 mg PO DAILY 06/17/17 [History ] Acetaminophen [Tylenol] 650 mg PO Q4H PRN tablet 06/19/17 [Rx] Ibuprofen [Motrin] 400 mg PO Q6H PRN tablet 06/19/17 [Rx] traMADol [Ultram] 50 mg PO Q6H PRN #14 tablet 06/19/17 [Rx] Past Medical History - Past Health History Medical/Surgical History: Denies Medical/Surgical History Other HEENT History: wears glasses, has top and bottom dentures Cardiovascular History: Reports: High Cholesterol, Hypertension Gastrointestinal History: Reports: None 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 History: Reports: 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: Hematologic History: Reports: Anemia Other Hematologic History: states bleeds easily, had transfusion after hysterectomy 45 yrs ago - Infectious Disease History Infectious Disease History: Reports: Chicken Pox, Measles - Past Surgical History HEENT Surgical History: Reports: Cataract Surgery Cardiovascular Surgical History: Reports: None GI Surgical History: Reports: Appendectomy Female Surgical History: Reports: Hysterectomy Social & Family History - Family History Family Medical History: Noncontributory - Tobacco Use Smoking Status *Q: Current Every Day Smoker Years of Tobacco use: 40 Packs/Tins Daily: 1 - Caffeine Use Caffeine Use: Reports: Coffee Caffeine Use Comment: 1-2pots/day - Recreational Drug Use Recreational Drug Use: No ED ROS GENERAL - Review of Systems Review Of Systems: ROS reveals no pertinent complaints other than HPI. ED EXAM, GENERAL - Physical Exam Exam: See Below (See dictation) Course - Vital Signs Last Recorded V/S: Last Vital Signs Temp 36.2 C 06/26/17 09:27 Pulse 75 06/26/17 09:27 Resp 18 06/26/17 09:27 BP 146/81 H 06/26/17 09:27 Pulse Ox 98 06/26/17 09:27 - Orders/Labs/Meds Orders: Active Orders 24 hr Category Date Time Status Communication Order [RC] STAT Care 06/26/17 10:12 Ordered Departure - Departure Time of Disposition: 10:25 Disposition: Home, Self-Care 01 Condition: Good Clinical Impression: Right inguinal hernia - Discharge Information Referrals: PCP,Unknown [Primary Care Provider] - Additional Instructions: The following information is given to patients seen in the emergency department who are being discharged to home. This information is to outline your options for follow-up care. We provide all patients seen in our emergency department with a follow-up referral. The need for follow-up, as well as the timing and circumstances, are variable depending upon the specifics of your emergency department visit. If you don't have a primary care physician on staff, we will provide you with a referral. We always advise you to contact your personal physician following an emergency department visit to inform them of the circumstance of the visit and for follow-up with them and/or the need for any referrals to a consulting specialist. The emergency department will also refer you to a specialist when appropriate. This referral assures that you have the opportunity for followup care with a specialist. All of these measure are taken in an effort to provide you with optimal care, which includes your followup. Under all circumstances we always encourage you to contact your private physician who remains a resource for coordinating your care. When calling for followup care, please make the office aware that this follow-up is from your recent emergency room visit. If for any reason you are refused follow-up, please contact the [facility] emergency department at and ask to speak to the emergency department charge nurse. [facility] Primary care- [place] [address] Please keep your appointment that has been rescheduled to tomorrow at 9:15 AM with in his clinic in the [facility]. Please also call and schedule a follow-up appointment with Dr. Lin for next week. Please use the hernia belt for support and try to avoid any heavy lifting prolonged standing or strenuous activities. Return to ER as needed and as discussed - My Orders Last 24 Hours: My Active Orders 06/26/17 10:12 Communication Order [RC] STAT - Assessment/Plan Last 24 Hours: My Active Orders 06/26/17 10:12 Communication Order [RC] STAT
[2017-06-26 11:18] VITALS: BP 126/88
== END 2017-06-26 11:05 | disposition home or self-care (01) ==
LOC: MW.ED 09:25
DX: K40.90 Unilateral inguinal hernia, without obstruction or gangrene, not specified as recurrent (principal); I10 Essential (primary) hypertension; E78.00 Pure hypercholesterolemia, unspecified; Z86.2 Personal history of diseases of the blood and blood-forming organs and certain disorders involving the immune mechanism; Z90.710 Acquired absence of both cervix and uterus; Z98.49 Cataract extraction status, unspecified eye; Z90.49 Acquired absence of other specified parts of digestive tract; F17.210 Nicotine dependence, cigarettes, uncomplicated; Z79.899 Other long term (current) drug therapy
CPT/HCPCS: 99282; 99283

== ENCOUNTER 2018-02-03 19:20 | Inpatient (IN) | payer MEDICARE, BC, OTHER ==
[2018-02-03] MEDS ORDERED: Sodium Chloride 0.9% 1,000 ML IV ONE (19:31)
--- NOTE | 2018-02-03 20:17 | EDM.PDOC ---
ED HPI GENERAL MEDICAL PROBLEM - General Chief Complaint: Gastrointestinal Problem Stated Complaint: BLOOD IN STOOL Time Seen by Provider: 02/03/18 19:29 Source of Information: Reports: Patient History Limitations: Reports: No Limitations - History of Present Illness INITIAL COMMENTS - FREE TEXT/NARRATIVE: HISTORY AND PHYSICAL: History of present illness: Patient is an 82-year-old female who presents to the emergency room today with complaints of bright red stools since 1600. She denies any abdominal pain, nausea, vomiting or diarrhea or constipation. She denies any fever, chills, chest pain or shortness of breath. States she takes one Aleve daily but does not use NSAIDs in excess. Colonoscopy was 2-3 years ago which she states she did have polyps but no other concerns. Patient has a past medical history of hypertension, elevated cholesterol, and anemia. Review of systems: As per history of present illness and below otherwise all systems reviewed and negative. Past medical history: As per history of present illness and as reviewed below otherwise noncontributory. Surgical history: As per history of present illness and as reviewed below otherwise noncontributory. Social history: No reported history of drug or alcohol abuse. Family history: As per history of present illness and as reviewed below otherwise noncontributory. Physical exam: General: Well-developed and well-nourished 82-year-old female. Alert and oriented. Nontoxic appearing and in no acute distress. HEENT: Atraumatic, normocephalic, pupils equal and reactive bilaterally, negative for conjunctival pallor or scleral icterus, mucous membranes moist, throat clear, neck supple, nontender, trachea midline. No drooling or trismus noted. No meningeal signs Lungs: Clear to auscultation, breath sounds equal bilaterally, chest nontender. Heart: S1S2, regular rate and rhythm without overt murmur Abdomen: Soft, nondistended, nontender. Negative for masses or hepatosplenomegaly. Negative for costovertebral tenderness. Pelvis: Stable nontender. 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: Deferred. Rectal: Positive Hemoccult stool. Skin: Intact, warm, dry. No lesions or rashes noted. Extremities: Atraumatic, negative for cords or calf pain. Neurovascular unremarkable. Neuro: Awake, alert, oriented. Cranial nerves II through XII unremarkable. Cerebellum unremarkable. Motor and sensory unremarkable throughout. Exam nonfocal. Notes: Patient did use the bathroom prior to my interview. I did note the collection container did have a moderate amount of blood (approx 1 cup). 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 Denies any dizziness, abdominal pain, weakness. Hgb 14, Elevated BUN/Creatinine. CT shows chronic constipation but no source for rectal bleeding is identified. (Incidental finding of a stable adrenal numbness, left renal cysts and aneurysmal dilatation ascending aorta). Dr. Cifuentes was consulted about this patient. Agreeable to keeping the patient as inpatient. Diagnostics: CBC, CMP, CT abdomen and pelvis, guaiac stool Therapeutics: IV fluid Impression: Bright red blood per rectum Plan: Inpatient admission per Dr. Cifuentes Definitive disposition and diagnosis as appropriate pending reevaluation and review of above. Onset: Today Duration: Hour(s): Associated Symptoms: Reports: No Other Symptoms - Related Data Allergies Allergy/AdvReac Type Severity Reaction Status Date / Time No Known Allergies Allergy Verified 02/03/18 19:27 Home Meds: Home Meds Flaxseed Oil 1,000 mg PO DAILY 06/30/15 [History] Multivitamin [Multivitamins] 1 tab PO DAILY 06/30/15 [History] Triamterene/Hydrochlorothiazid [Triamterene-HCTZ 37.5-25 MG] 25 - 37.5 tab PO DAILY 06/30/15 [History] Ubidecarenone [Co Q-10] 100 mg PO DAILY 06/30/15 [History] atorvaSTATin Calcium [Atorvastatin Calcium] 10 mg PO DAILY 06/30/15 [History] Fish Oil/[place]-3 Fatty Acids [Fish Oil 1,000 MG] 0 mg PO DAILY 06/17/17 [History ] Past Medical History - Past Health History Medical/Surgical History: Denies Medical/Surgical History Other HEENT History: wears glasses, has top and bottom dentures Cardiovascular History: Reports: High Cholesterol, Hypertension Gastrointestinal History: Reports: None 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 History: Reports: None 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 History: Reports: None Psychiatric History: Reports: None Endocrine/Metabolic History: Reports: None Hematologic History: Reports: Anemia Other Hematologic History: states bleeds easily, had transfusion after hysterectomy 40 yrs ago Oncologic (Cancer) History: Reports: None Dermatologic History: Reports: None - Infectious Disease History Infectious Disease History: Reports: Chicken Pox, Mumps, Rubella, Scarlet Fever - Past Surgical History HEENT Surgical History: Reports: Cataract Surgery Cardiovascular Surgical History: Reports: None GI Surgical History: Reports: Appendectomy Female Surgical History: Reports: Hysterectomy Social & Family History - Family History Family Medical History: Noncontributory - Tobacco Use Smoking Status *Q: Current Every Day Smoker Years of Tobacco use: 33 Packs/Tins Daily: 1 - Caffeine Use Caffeine Use: Reports: Coffee Caffeine Use Comment: 1-2pots/day - Recreational Drug Use Recreational Drug Use: No ED ROS GENERAL - Review of Systems Review Of Systems: ROS reveals no pertinent complaints other than HPI. ED EXAM, GI/ABD - Physical Exam Exam: See Below (See dictation) Course - Vital Signs Last Recorded V/S: Last Vital Signs Temp 96.9 F 02/03/18 19:29 Pulse 76 02/03/18 21:30 Resp 16 02/03/18 21:30 BP 144/78 H 02/03/18 21:30 Pulse Ox 96 02/03/18 21:30 - Orders/Labs/Meds Orders: Active Orders 24 hr Category Date Time Status Admission Status [Patient Status] [ADT] Stat ADT 02/03/18 21:29 Ordered Abdomen Pelvis wo Cont [CT] Stat Exams 02/03/18 19:31 Taken Hemoccult [OCCULT BLOOD DIAGNOSTIC] [OP] Stat Lab 02/03/18 20:05 Ordered Labs: Laboratory Tests 02/03/18 02/03/18 Range/Units 20:00 20:00 WBC 8.17 (4.0-11.0) K/uL RBC 4.52 (4.30-5.90) M/uL Hgb 14.0 (12.0-16.0) g/dL Hct 40.6 (36.0-46.0) % MCV 89.8 (80.0-98.0) fL MCH 31.0 (27.0-32.0) pg MCHC 34.5 (31.0-37.0) g/dL RDW Std Deviation 48.0 (28.0-62.0) fl RDW Coeff of Alexis 15 (11.0-15.0) % Plt Count 234 (150-400) K/uL MPV 11.70 (7.40-12.00) fL Neut % (Auto) 74.6 (48.0-80.0) % Lymph % (Auto) 17.7 (16.0-40.0) % [place] % (Auto) 5.5 (0.0-15.0) % Eos % (Auto) 1.7 (0.0-7.0) % Baso % (Auto) 0.5 (0.0-1.5) % Neut # (Auto) 6.1 H (1.4-5.7) K/uL Lymph # (Auto) 1.5 (0.6-2.4) K/uL [place] # (Auto) 0.5 (0.0-0.8) K/uL Eos # (Auto) 0.1 (0.0-0.7) K/uL Baso # (Auto) 0.0 (0.0-0.1) K/uL Nucleated RBC % 0.0 /100WBC Nucleated RBCs # 0 K/uL Sodium 140 (136-145) mmol/L Potassium 3.5 (3.5-5.1) mmol/L Chloride 102 (98-107) mmol/L Carbon Dioxide 28.2 (21.0-32.0) mmol/L BUN 29 H (7.0-18.0) mg/dL Creatinine 1.2 H (0.6-1.0) mg/dL Est Cr Clr Drug Dosing 35.75 mL/min Estimated GFR (MDRD) 43.1 ml/min Glucose 97 (74-106) mg/dL Calcium 9.6 (8.5-10.1) mg/dL Total Bilirubin 0.9 (0.2-1.0) mg/dL AST 24 (15-37) IU/L ALT 22 (14-63) IU/L Alkaline Phosphatase 67 (46-116) U/L Total Protein 7.3 (6.4-8.2) g/dL Albumin 4.0 (3.4-5.0) g/dL Globulin 3.3 (2.0-3.5) g/dL Albumin/Globulin Ratio 1.2 L (1.3-2.8) Meds: Medications Discontinued Medications Generic Name Dose Route Start Last Admin Trade Name Freq PRN Reason Stop Dose Admin Sodium Chloride 1,000 mls @ 999 mls/hr 02/03/18 19:31 02/03/18 20:08 Normal Saline IV 02/03/18 20:31 700 mls/hr STAT ONE Infusion Departure - Departure Time of Disposition: 21:36 Disposition: Admitted As Inpatient 66 Clinical Impression: Bright red blood per rectum - Discharge Information Referrals: Jerzy Lin MD [Primary Care Provider] - Forms: ED Department Discharge - My Orders Last 24 Hours: My Active Orders 02/03/18 19:31 Abdomen Pelvis wo Cont [CT] Stat 02/03/18 20:05 Hemoccult [OCCULT BLOOD DIAGNOSTIC] [OP] Stat 02/03/18 21:29 Admission Status [Patient Status] [ADT] Stat - Assessment/Plan Last 24 Hours: My Active Orders 02/03/18 19:31 Abdomen Pelvis wo Cont [CT] Stat 02/03/18 20:05 Hemoccult [OCCULT BLOOD DIAGNOSTIC] [OP] Stat 02/03/18 21:29 Admission Status [Patient Status] [ADT] Stat
--- NOTE | 2018-02-03 21:49 | PCM.HP ---
H&P History of Present Illness - General Admit Problem/Dx: Admission Diagnosis/Problem Admission Diagnosis/Problem Bright red blood per rectum - History of Present Illness Initial Comments - Free Text/Narative: 82 yo female who presents to the ED with bright red blood per rectum. She reports passing bright red blood three times today. The ED provider noted about of cup of shine blood. Patient denies any history of abdominal pain, diarrhea, nausea or vomiting. - Related Data Allergies/Adverse Reactions: Allergies Allergy/AdvReac Type Severity Reaction Status Date / Time No Known Allergies Allergy Verified 02/03/18 19:27 Home Medications: Home Meds Flaxseed Oil 1,000 mg PO DAILY 06/30/15 [History] Multivitamin [Multivitamins] 1 tab PO DAILY 06/30/15 [History] Triamterene/Hydrochlorothiazid [Triamterene-HCTZ 37.5-25 MG] 25 - 37.5 tab PO DAILY 06/30/15 [History] Ubidecarenone [Co Q-10] 100 mg PO DAILY 06/30/15 [History] atorvaSTATin Calcium [Atorvastatin Calcium] 10 mg PO DAILY 06/30/15 [History] Fish Oil/[place]-3 Fatty Acids [Fish Oil 1,000 MG] 0 mg PO DAILY 06/17/17 [History ] Past Medical History - Past Health History Medical/Surgical History: Denies Medical/Surgical History Other HEENT History: wears glasses, has top and bottom dentures Cardiovascular History: Reports: High Cholesterol, Hypertension Gastrointestinal History: Reports: None 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 History: Reports: 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: Reports: None Psychiatric History: Reports: None Endocrine/Metabolic History: Reports: None Hematologic History: Reports: Anemia Other Hematologic History: states bleeds easily, had transfusion after hysterectomy 40 yrs ago Oncologic (Cancer) History: Reports: None Dermatologic History: Reports: None - Infectious Disease History Infectious Disease History: Reports: Chicken Pox, Mumps, Rubella, Scarlet Fever - Past Surgical History HEENT Surgical History: Reports: Cataract Surgery Cardiovascular Surgical History: Reports: None GI Surgical History: Reports: Appendectomy Female Surgical History: Reports: Hysterectomy Social & Family History - Family History Family Medical History: Noncontributory - Tobacco Use Smoking Status *Q: Current Every Day Smoker Years of Tobacco use: 33 Packs/Tins Daily: 1 - Caffeine Use Caffeine Use: Reports: Coffee Caffeine Use Comment: 1-2pots/day - Recreational Drug Use Recreational Drug Use: No H&P Review of Systems - Review of Systems: Review Of Systems: ROS reveals no pertinent complaints other than HPI. Exam - Exam Exam: See Below - Vital Signs Vital Signs: Last Vital Signs Temp 36.1 C 02/03/18 19:29 Pulse 76 02/03/18 21:30 Resp 16 02/03/18 21:30 BP 144/78 H 02/03/18 21:30 Pulse Ox 96 02/03/18 21:30 Weight: 77.2 kg - Exam General: Alert, Oriented HEENT: Mucosa Moist & [place] Lungs: Clear to Auscultation, Normal Respiratory Effort Cardiovascular: Regular Rate, Regular Rhythm GI/Abdominal Exam: Normal Bowel Sounds, Soft, Non-Tender Extremities: Non-Tender, No Pedal Edema - Patient Data Lab Results Last 24 hrs: Laboratory Results - last 24 hr 02/03/18 02/03/18 Range/Units 20:00 20:00 WBC 8.17 (4.0-11.0) K/uL RBC 4.52 (4.30-5.90) M/uL Hgb 14.0 (12.0-16.0) g/dL Hct 40.6 (36.0-46.0) % MCV 89.8 (80.0-98.0) fL MCH 31.0 (27.0-32.0) pg MCHC 34.5 (31.0-37.0) g/dL RDW Std Deviation 48.0 (28.0-62.0) fl RDW Coeff of Alexis 15 (11.0-15.0) % Plt Count 234 (150-400) K/uL MPV 11.70 (7.40-12.00) fL Neut % (Auto) 74.6 (48.0-80.0) % Lymph % (Auto) 17.7 (16.0-40.0) % [place] % (Auto) 5.5 (0.0-15.0) % Eos % (Auto) 1.7 (0.0-7.0) % Baso % (Auto) 0.5 (0.0-1.5) % Neut # (Auto) 6.1 H (1.4-5.7) K/uL Lymph # (Auto) 1.5 (0.6-2.4) K/uL [place] # (Auto) 0.5 (0.0-0.8) K/uL Eos # (Auto) 0.1 (0.0-0.7) K/uL Baso # (Auto) 0.0 (0.0-0.1) K/uL Nucleated RBC % 0.0 /100WBC Nucleated RBCs # 0 K/uL Sodium 140 (136-145) mmol/L Potassium 3.5 (3.5-5.1) mmol/L Chloride 102 (98-107) mmol/L Carbon Dioxide 28.2 (21.0-32.0) mmol/L BUN 29 H (7.0-18.0) mg/dL Creatinine 1.2 H (0.6-1.0) mg/dL Est Cr Clr Drug Dosing 35.75 mL/min Estimated GFR (MDRD) 43.1 ml/min Glucose 97 (74-106) mg/dL Calcium 9.6 (8.5-10.1) mg/dL Total Bilirubin 0.9 (0.2-1.0) mg/dL AST 24 (15-37) IU/L ALT 22 (14-63) IU/L Alkaline Phosphatase 67 (46-116) U/L Total Protein 7.3 (6.4-8.2) g/dL Albumin 4.0 (3.4-5.0) g/dL Globulin 3.3 (2.0-3.5) g/dL Albumin/Globulin Ratio 1.2 L (1.3-2.8) Result Diagrams: 02/04/18 12:17 02/03/18 20:00 Nick Results Last 24 hrs: Microbiology 02/03/18 20:05 Stool Occult Blood (NICK) - Final Stool / Feces POSITIVE OCCULT BLOOD Problem List Initiated/Reviewed/Updated: Yes Orders Last 24hrs: Active Orders 24 hr Category Date Time Status Admission Status [Patient Status] [ADT] Stat ADT 02/03/18 21:29 Active Notify Provider Consults [RC] ASDIRECTED Care 02/03/18 21:46 Ordered Oxygen Therapy [RC] PRN Care 02/03/18 21:45 Ordered Up ad Roseann [RC] ASDIRECTED Care 02/03/18 21:45 Ordered VTE/DVT Education [RC] PER UNIT ROUTINE Care 02/03/18 21:45 Ordered Vital Signs [RC] Q4H Care 02/03/18 21:45 Ordered Consult to Physician [CONS] Routine Cons 02/03/18 21:45 Ordered Nothing per Oral Now Diet [DIET] Diet 02/03/18 Breakfast Ordered Abdomen Pelvis wo Cont [CT] Stat Exams 02/03/18 19:31 Taken CBC WITH AUTO DIFF [HEME] Routine Lab 02/04/18 02:00 Ordered Hemoccult [OCCULT BLOOD DIAGNOSTIC] [OP] Stat Lab 02/03/18 20:05 Ordered Sodium Chloride 0.9% @ 125 MLS/HR (1000ml) Med 02/03/18 21:45 Ordered Sodium Chloride 0.9% [Normal Saline] 1,000 ml IV ASDIRECTED Sequential Compression Device [OM.PC] Per Unit Routine Oth 02/03/18 21:45 Ordered Resuscitation Status Routine Resus Stat 02/03/18 21:45 Ordered Assessment/Plan Comment:: 82 yo female admitted with bright red blood per rectum. Will continue to monitor and trend Hgb.
[2018-02-03] MEDS: Sodium Chloride 0.9% 1,000 ML IV SCH (21:51)
[2018-02-04] MEDS: Sodium Chloride 0.9% 1,000 ML IV SCH (06:48)
--- NOTE | 2018-02-04 08:18 | PCM.PN ---
- General Info Date of Service: 02/04/18 Admission Dx/Problem (Free Text): Admission Diagnosis/Problem Admission Diagnosis/Problem Bright red blood per rectum Subjective Update: feeling ok this morning, no further stools since in the ED. No abdominal pain, nausea or vomiting. No chest pain or SOB. Functional Status: Reports: Pain Controlled, Tolerating Diet, Ambulating, Urinating - Review of Systems General: Reports: No Symptoms. Denies: Fever, Weakness, Fatigue HEENT: Reports: No Symptoms. Denies: Sore Throat Pulmonary: Reports: No Symptoms. Denies: Shortness of Breath Cardiovascular: Reports: No Symptoms. Denies: Chest Pain Gastrointestinal: Reports: No Symptoms. Denies: Abdominal Pain, Nausea, Vomiting 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: Reports: No Symptoms. Denies: Dysuria, Frequency, Burning Musculoskeletal: Reports: No Symptoms. Denies: Neck Pain Neurological: Reports: No Symptoms Psychiatric: Reports: No Symptoms - Patient Data Vitals - Most Recent: Last Vital Signs Temp 97.8 F 02/04/18 08:00 Pulse 70 02/04/18 08:00 Resp 16 02/04/18 08:00 BP 137/77 02/04/18 08:00 Pulse Ox 94 L 02/04/18 08:00 Weight - Most Recent: 76.657 kg I&O - Last 24 Hours: Intake & Output 02/03/18 02/04/18 02/04/18 22:59 06:59 14:59 Output Total 1200 Balance -1200 Lab Results Last 24 Hours: Laboratory Results - last 24 hr 02/03/18 02/03/18 02/04/18 Range/Units 20:00 20:00 01:53 WBC 8.17 6.71 (4.0-11.0) K/uL RBC 4.52 3.69 L (4.30-5.90) M/uL Hgb 14.0 11.3 L (12.0-16.0) g/dL Hct 40.6 33.1 L (36.0-46.0) % MCV 89.8 89.7 (80.0-98.0) fL MCH 31.0 30.6 (27.0-32.0) pg MCHC 34.5 34.1 (31.0-37.0) g/dL RDW Std Deviation 48.0 48.1 (28.0-62.0) fl RDW Coeff of Alexis 15 15 (11.0-15.0) % Plt Count 234 202 (150-400) K/uL MPV 11.70 11.40 (7.40-12.00) fL Neut % (Auto) 74.6 72.3 (48.0-80.0) % Lymph % (Auto) 17.7 19.5 (16.0-40.0) % [place] % (Auto) 5.5 5.8 (0.0-15.0) % Eos % (Auto) 1.7 2.1 (0.0-7.0) % Baso % (Auto) 0.5 0.3 (0.0-1.5) % Neut # (Auto) 6.1 H 4.9 (1.4-5.7) K/uL Lymph # (Auto) 1.5 1.3 (0.6-2.4) K/uL [place] # (Auto) 0.5 0.4 (0.0-0.8) K/uL Eos # (Auto) 0.1 0.1 (0.0-0.7) K/uL Baso # (Auto) 0.0 0.0 (0.0-0.1) K/uL Nucleated RBC % 0.0 0.0 /100WBC Nucleated RBCs # 0 0 K/uL Sodium 140 (136-145) mmol/L Potassium 3.5 (3.5-5.1) mmol/L Chloride 102 (98-107) mmol/L Carbon Dioxide 28.2 (21.0-32.0) mmol/L BUN 29 H (7.0-18.0) mg/dL Creatinine 1.2 H (0.6-1.0) mg/dL Est Cr Clr Drug Dosing 35.75 mL/min Estimated GFR (MDRD) 43.1 ml/min Glucose 97 (74-106) mg/dL Calcium 9.6 (8.5-10.1) mg/dL Total Bilirubin 0.9 (0.2-1.0) mg/dL AST 24 (15-37) IU/L ALT 22 (14-63) IU/L Alkaline Phosphatase 67 (46-116) U/L Total Protein 7.3 (6.4-8.2) g/dL Albumin 4.0 (3.4-5.0) g/dL Globulin 3.3 (2.0-3.5) g/dL Albumin/Globulin Ratio 1.2 L (1.3-2.8) Nick Results Last 24 Hours: Microbiology 02/03/18 20:05 Stool Occult Blood (NICK) - Final Stool / Feces POSITIVE OCCULT BLOOD Med Orders - Current: Current Medications Sodium Chloride (Normal Saline) 1,000 mls @ 125 mls/hr IV ASDIRECTED [facility] Last Admin: 02/04/18 06:48 Dose: 125 mls/hr Discontinued Medications Sodium Chloride (Normal Saline) 1,000 mls @ 999 mls/hr IV STAT ONE Stop: 02/03/18 20:31 Last Infusion: 02/03/18 20:08 Dose: 700 mls/hr - Exam General: Alert, Oriented, Cooperative, No Acute Distress Neck: Supple Lungs: Clear to Auscultation, Normal Respiratory Effort Cardiovascular: Regular Rate, Regular Rhythm GI/Abdominal Exam: Normal Bowel Sounds, Soft, Non-Tender, No Organomegaly, No Distention, No Abnormal Bruit, No Mass, Pelvis Stable Extremities: Normal Inspection, Normal Range of Motion, Non-Tender, No Pedal Edema, Normal Capillary Refill Neurological: No New Focal Deficit Psy/Mental Status: Alert, Normal Affect, Normal Mood - Problem List & Annotations (1) Bright red blood per rectum SNOMED Code(s): 352134528 Code(s): K62.5 - HEMORRHAGE OF ANUS AND RECTUM Status: Acute Current Visit: Yes (2) HTN (hypertension) SNOMED Code(s): 75968903 Code(s): I10 - ESSENTIAL (PRIMARY) HYPERTENSION Status: Acute Current Visit: Yes (3) Dyslipidemia SNOMED Code(s): 085225754 Code(s): E78.5 - HYPERLIPIDEMIA, UNSPECIFIED Status: Acute Current Visit : Yes - Problem List Review Problem List Initiated/Reviewed/Updated: Yes - Plan Plan:: 82 yo female admitted with bright red blood per rectum. 1. Lower GI bleeding: No stools since in the ED. passing flatus. But did have one this late afternoon around 1100, less blood, but still bright red. No anticoagulation at home, does take Aleve daily for arthritic pain. Dr Carty, general surgeon, consulted and recommended barium enema, which is ordered today. Will continue to monitor and trend Hgb. Given IVF overnight, hgb did drop to 11.3. Keep NPO for now. 2. HTN: Continue to monitor. Hold PO medications VTE prophylaxis: SCDs only due to current GI bleed. Dispo: 1-2 days pending.
--- NOTE | 2018-02-04 14:07 | CT ---
EXAM DATE: 02/03/18 PATIENT'S AGE: 82 Patient: ROLANDO RICHARDSON Facility: [place], [place] Site . Site : [id number] Study: CT Abdomen/Pelvis W/O [id number]/15/2018 9:06:12 PM Ordering Physician: Doctor Velez Final Report: INDICATION: Rectal bleeding. COMPARISON: [address] TECHNIQUE: Noncontrast images lung bases to proximal femurs. FINDINGS: Aneurysmal enlargement ascending aorta of up to 5.4 cm. Atherosclerosis of the coronary arteries. Heart size is normal. Small sliding hiatus hernia. No significant finding in the visualized lung parenchyma. Liver, gallbladder, pancreas and spleen are normal. Bilateral low attenuation adrenal body adenomas. Benign cyst left kidney. Atherosclerosis of the ectatic aorta. No aneurysmal dilatation in the abdomen. No inflammation or dilatation of small bowel. Redundant colon is moderately filled with stool. Diverticula in the sigmoid without acute inflammation. A discrete mass lesion is not identified. Urinary bladder is decompressed. Uterus and adnexal structures are absent. Prominent diffuse osteopenia. Prominent facet arthrosis no acute fracture. IMPRESSION: 1. Chronic constipation. Previous large right inguinal hernia is not apparent. No source for rectal bleeding identified. 2. Stable adrenal adenomas. 3. Stable left renal cysts. 4. Stable aneurysmal dilatation ascending aorta. Please note that all CT scans at this facility use dose modulation, iterative reconstruction, and/or weight-based dosing when appropriate to reduce radiation dose to as low as reasonably achievable. Dictated by Anthony Alaniz MD @ Feb 03 2018 9:17PM (Electronic Signature) Report Signed by Proxy. LOUANN
--- NOTE | 2018-02-04 14:41 | CR ---
EXAMINATION: Therapeutic barium enema HISTORY: Bleeding COMPARISON: CT dated 02/03/2018 TECHNIQUE: Single contrast barium enema was performed. FINDINGS: The colon and rectum are normally distensible. No filling defect identified. There is moder ate sigmoid diverticulosis. There is reflux into the terminal ileum. Pressure was held once the colon was distended for several minutes. IMPRESSION: 1. Diverticulosis otherwise unremarkable single contrast barium enema.
[2018-02-04] MEDS ORDERED: Acetaminophen 325 MG Tab PO PRN (15:15)
--- NOTE | 2018-02-04 15:35 | PCM.CONS ---
H&P History of Present Illness - General Date of Service: 02/04/18 Admit Problem/Dx: Admission Diagnosis/Problem Admission Diagnosis/Problem Bright red blood per rectum Source of Information: Patient History Limitations: Reports: No Limitations - History of Present Illness Initial Comments - Free Text/Narative: Asked to see this 82 y/o female admitted on 02/03 with bright red blood per rectum. States bleeding started about 4:30 pm on the day of admission. She denied abdominal pain, nausea, vomiting, fever, chills or recent unexplained weight loss. Symptom Onset Date: 02/03/18 Symptom Onset Time: 16:30 Location: Reports: Abdomen Quality: Reports: Other (rectal bleeding) Severity: Moderate Improves with: Reports: None Worsens with: Reports: None Associated Symptoms: Denies: Loss of Appetite, Malaise, Nausea/Vomiting, Shortness of Breath - Related Data Allergies/Adverse Reactions: Allergies Allergy/AdvReac Type Severity Reaction Status Date / Time No Known Allergies Allergy Verified 02/03/18 19:27 Home Medications: Home Meds Flaxseed Oil 1,000 mg PO DAILY 06/30/15 [History] Multivitamin [Multivitamins] 1 tab PO DAILY 06/30/15 [History] Triamterene/Hydrochlorothiazid [Triamterene-HCTZ 37.5-25 MG] 25 - 37.5 tab PO DAILY 06/30/15 [History] Ubidecarenone [Co Q-10] 100 mg PO DAILY 06/30/15 [History] atorvaSTATin Calcium [Atorvastatin Calcium] 10 mg PO DAILY 06/30/15 [History] Fish Oil/[place]-3 Fatty Acids [Fish Oil 1,000 MG] 0 mg PO DAILY 06/17/17 [History ] Past Medical History - Past Health History Medical/Surgical History: Denies Medical/Surgical History Other HEENT History: wears glasses, has top and bottom dentures Cardiovascular History: Reports: High Cholesterol, Hypertension Gastrointestinal History: Reports: None 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 History: Reports: None NURSING INFORMATICS SPECIALIST History: Reports: Neurological History: Reports: None Psychiatric History: Reports: None Endocrine/Metabolic History: Reports: None Hematologic History: Reports: Anemia Other Hematologic History: states bleeds easily, had transfusion after hysterectomy 40 yrs ago Oncologic (Cancer) History: Reports: None Dermatologic History: Reports: None - Infectious Disease History Infectious Disease History: Reports: Chicken Pox, Mumps, Rubella, Scarlet Fever - Past Surgical History HEENT Surgical History: Reports: Cataract Surgery Cardiovascular Surgical History: Reports: None GI Surgical History: Reports: Appendectomy Female Surgical History: Reports: Hysterectomy Social & Family History - Family History Family Medical History: Noncontributory - Tobacco Use Smoking Status *Q: Current Every Day Smoker Years of Tobacco use: 33 Packs/Tins Daily: 1 Second Hand Smoke Exposure: Yes - Caffeine Use Caffeine Use: Reports: Coffee Caffeine Use Comment: 1-2pots/day - Recreational Drug Use Recreational Drug Use: No H&P Review of Systems - Review of Systems: Review Of Systems: See Below General: Denies: Fever, Chills, Malaise, Weakness, Fatigue, Weight Loss HEENT: Reports: No Symptoms Pulmonary: Denies: Shortness of Breath, Wheezing Cardiovascular: Denies: Chest Pain, Palpitations Gastrointestinal: Reports: Bloody Stool. Denies: Abdominal Pain, Decreased Appetite, Hematemesis, Nausea, Stool Incontinence, Vomiting 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: Reports: No Symptoms Musculoskeletal: Reports: No Symptoms Skin: Reports: No Symptoms Psychiatric: Reports: No Symptoms Neurological: Reports: No Symptoms Hematologic/Lymphatic: Reports: Easy Bleeding Immunologic: Reports: No Symptoms Exam - Exam Exam: See Below - Vital Signs Vital Signs: Last Vital Signs Temp 99.0 F 02/04/18 11:42 Pulse 63 02/04/18 11:42 Resp 20 02/04/18 11:42 BP 141/61 H 02/04/18 11:42 Pulse Ox 95 02/04/18 11:42 Weight: 170 lb 3.15 oz - Exam Quality Assessment: Supplemental Oxygen General: Alert, Oriented, Cooperative HEENT: Conjunctiva Clear, EACs Clear, Nares Patent, Pupils Equal, Pupils Reactive. No: Scleral Icterus Neck: Supple, +2 Carotid Pulse wo Bruit Lungs: Clear to Auscultation, Normal Respiratory Effort Cardiovascular: Regular Rate, Regular Rhythm, Normal S1, Normal S2. No: Tachycardia, Systolic Murmur GI/Abdominal Exam: Normal Bowel Sounds, Soft, Non-Tender, No Distention. No: Guarding, Rigid, Rebound (Female) Exam: Normal External Exam, Deferred Rectal (Female) Exam: Heme + Stool Back Exam: Normal Inspection Extremities: Normal Inspection Peripheral Pulses: 4+: Posterior Tibial (L), Posterior Tibial (R), Dorsalis Pedis (L), Dorsalis Pedis (R) Skin: Warm, Dry, Intact Neurological: Cranial Nerves Intact Neuro Extensive - Mental Status: Alert, Oriented x3, Normal Mood/Affect, Normal Cognition Psychiatric: Alert, Normal Affect, Normal Mood - Patient Data Lab Results Last 24 hrs: Laboratory Results - last 24 hr 02/03/18 02/03/18 02/04/18 Range/Units 20:00 20:00 01:53 WBC 8.17 6.71 (4.0-11.0) K/uL RBC 4.52 3.69 L (4.30-5.90) M/uL Hgb 14.0 11.3 L (12.0-16.0) g/dL Hct 40.6 33.1 L (36.0-46.0) % MCV 89.8 89.7 (80.0-98.0) fL MCH 31.0 30.6 (27.0-32.0) pg MCHC 34.5 34.1 (31.0-37.0) g/dL RDW Std Deviation 48.0 48.1 (28.0-62.0) fl RDW Coeff of Alexis 15 15 (11.0-15.0) % Plt Count 234 202 (150-400) K/uL MPV 11.70 11.40 (7.40-12.00) fL Neut % (Auto) 74.6 72.3 (48.0-80.0) % Lymph % (Auto) 17.7 19.5 (16.0-40.0) % [place] % (Auto) 5.5 5.8 (0.0-15.0) % Eos % (Auto) 1.7 2.1 (0.0-7.0) % Baso % (Auto) 0.5 0.3 (0.0-1.5) % Neut # (Auto) 6.1 H 4.9 (1.4-5.7) K/uL Lymph # (Auto) 1.5 1.3 (0.6-2.4) K/uL [place] # (Auto) 0.5 0.4 (0.0-0.8) K/uL Eos # (Auto) 0.1 0.1 (0.0-0.7) K/uL Baso # (Auto) 0.0 0.0 (0.0-0.1) K/uL Nucleated RBC % 0.0 0.0 /100WBC Nucleated RBCs # 0 0 K/uL Sodium 140 (136-145) mmol/L Potassium 3.5 (3.5-5.1) mmol/L Chloride 102 (98-107) mmol/L Carbon Dioxide 28.2 (21.0-32.0) mmol/L BUN 29 H (7.0-18.0) mg/dL Creatinine 1.2 H (0.6-1.0) mg/dL Est Cr Clr Drug Dosing 35.75 mL/min Estimated GFR (MDRD) 43.1 ml/min Glucose 97 (74-106) mg/dL Calcium 9.6 (8.5-10.1) mg/dL Total Bilirubin 0.9 (0.2-1.0) mg/dL AST 24 (15-37) IU/L ALT 22 (14-63) IU/L Alkaline Phosphatase 67 (46-116) U/L Total Protein 7.3 (6.4-8.2) g/dL Albumin 4.0 (3.4-5.0) g/dL Globulin 3.3 (2.0-3.5) g/dL Albumin/Globulin Ratio 1.2 L (1.3-2.8) 04/16/18 Range/Units 12:17 WBC (4.0-11.0) K/uL RBC (4.30-5.90) M/uL Hgb 11.5 L (12.0-16.0) g/dL Hct (36.0-46.0) % MCV (80.0-98.0) fL MCH (27.0-32.0) pg MCHC (31.0-37.0) g/dL RDW Std Deviation (28.0-62.0) fl RDW Coeff of Alexis (11.0-15.0) % Plt Count (150-400) K/uL MPV (7.40-12.00) fL Neut % (Auto) (48.0-80.0) % Lymph % (Auto) (16.0-40.0) % [place] % (Auto) (0.0-15.0) % Eos % (Auto) (0.0-7.0) % Baso % (Auto) (0.0-1.5) % Neut # (Auto) (1.4-5.7) K/uL Lymph # (Auto) (0.6-2.4) K/uL [place] # (Auto) (0.0-0.8) K/uL Eos # (Auto) (0.0-0.7) K/uL Baso # (Auto) (0.0-0.1) K/uL Nucleated RBC % /100WBC Nucleated RBCs # K/uL Sodium (136-145) mmol/L Potassium (3.5-5.1) mmol/L Chloride (98-107) mmol/L Carbon Dioxide (21.0-32.0) mmol/L BUN (7.0-18.0) mg/dL Creatinine (0.6-1.0) mg/dL Est Cr Clr Drug Dosing mL/min Estimated GFR (MDRD) ml/min Glucose (74-106) mg/dL Calcium (8.5-10.1) mg/dL Total Bilirubin (0.2-1.0) mg/dL AST (15-37) IU/L ALT (14-63) IU/L Alkaline Phosphatase (46-116) U/L Total Protein (6.4-8.2) g/dL Albumin (3.4-5.0) g/dL Globulin (2.0-3.5) g/dL Albumin/Globulin Ratio (1.3-2.8) Result Diagrams: 02/04/18 12:17 02/03/18 20:00 Nick Results Last 24 hrs: Microbiology 02/03/18 20:05 Stool Occult Blood (NICK) - Final Stool / Feces POSITIVE OCCULT BLOOD Consult PN Assessment/Plan Procedures: Procedures ALANINE AMINO (ALT) (SGPT) (04/21/16) COLONOSCOPY AND BIOPSY (07/01/15) COMP SCREEN MAMMOGRAM ADD-ON (06/13/16) COMPLETE CBC W/AUTO DIFF WBC (06/18/17) COMPREHEN METABOLIC PANEL (06/18/17) CT ABD & PELVIS W/O CONTRAST (06/18/17) ELECTROCARDIOGRAM TRACING (06/18/17) EMERGENCY DEPT VISIT (06/26/17) EMERGENCY DEPT VISIT (06/18/17) EMERGENCY DEPT VISIT (06/17/17) LIPID PANEL (03/26/17) METABOLIC PANEL TOTAL CA (04/21/16) PROTHROMBIN TIME (06/18/17) PT EVAL LOW COMPLEX 20 MIN (06/18/17) ROUTINE VENIPUNCTURE (06/18/17) URINALYSIS AUTO W/SCOPE (06/18/17) X-RAY EXAM HIP UNI 2-3 VIEWS (06/17/17) X-RAY EXAM L-S SPINE 2/3 VWS (04/20/16) X-RAY EXAM OF FEMUR 2/> (06/18/17) X-RAY EXAM OF PELVIS (04/20/16) (1) Bright red blood per rectum SNOMED Code(s): 821909153 Code(s): K62.5 - HEMORRHAGE OF ANUS AND RECTUM Priority: High Current Visit: Yes (2) HTN (hypertension) SNOMED Code(s): 48116552 Code(s): I10 - ESSENTIAL (PRIMARY) HYPERTENSION Priority: Medium Current Visit: Yes Problem List Initiated/Reviewed/Updated: Yes Plan: Discussed case earlier today with Dr. Cifuentes and Alisha--recommended BE and serial H&H. BE shows diverticulosis with no other abnormality. Hgb stable at 11.5 Gms, down from 14 on admission. Recommend letting her start full liquids and recheck Hgb in the morning. If she is stable, she could be discharged with diverticulosis instructions. She does not need colonoscopy. If she rebleeds, she will need to be transferred to a larger facility with more endoscopic capability.
[2018-02-05 07:50] VITALS: BP 123/86
[2018-02-05] MEDS ORDERED: Hydrochlorothiazide/Triamterene 25-37.5 Tab PO SCH (09:00)
[2018-02-05] MEDS ORDERED: Non-Formulary Medication 1 Each (Ubidecarenone 100 MG) PO SCH (09:00)
[2018-02-05] MEDS ORDERED: Multivitamins with Iron/Calcium/Folic Acid/Minerals Tab PO SCH (09:00)
[2018-02-05] MEDS ORDERED: atorvaSTATin 10 MG Tab PO SCH (09:00)
[2018-02-05] MEDS ORDERED: Fish Oil/Omega-3 Fatty Acids 1 Gm Cap PO SCH (09:00)
[2018-02-05] MEDS ORDERED: FLAXSEED OIL 1000 MG PO SCH (09:00)
--- NOTE | 2018-02-05 09:13 | PCM.DCSUM1 ---
Discharge Summary - Hospital Course Brief History: This 82 year old female with pmh of HTN and dyslipidemia presented to the ED with bright red blood per rectum. She reports passing bright red blood three times today. The ED provider noted about of cup of shine blood. Patient denies any history of abdominal pain, diarrhea, nausea or vomiting. Denies dyspnea, chest pain or palpitaions. No weakness or fatigue. She otherwise has been feeling fine until this happened. - Discharge Data Discharge Date: 02/05/18 Discharge Disposition: Home, Self-Care 01 Condition: Good - Discharge Diagnosis/Problem(s) (1) Bright red blood per rectum SNOMED Code(s): 777768840 ICD Code: K62.5 - HEMORRHAGE OF ANUS AND RECTUM Status: Acute Priority: High Current Visit: Yes (2) HTN (hypertension) SNOMED Code(s): 16934120 ICD Code: I10 - ESSENTIAL (PRIMARY) HYPERTENSION Status: Acute Priority: Medium Current Visit: Yes (3) Dyslipidemia SNOMED Code(s): 970956736 ICD Code: E78.5 - HYPERLIPIDEMIA, UNSPECIFIED Status: Acute Current Visit : Yes - Patient Summary/Data Consults: Consultations 02/03/18 21:45 Consult to Physician [CONS] Routine - Patient Instructions Diet: Regular Diet as Tolerated (Diverticulosis diet, please provide education material) Activity: As Tolerated, No Strenuous Activities Showering/Bathing: May Shower Notify Provider of: Fever, Increased Pain, Swelling and Redness, Drainage, Nausea and/or Vomiting - Discharge Plan Home Medications: Home Meds Flaxseed Oil 1,000 mg PO DAILY 06/30/15 [History] Multivitamin [Multivitamins] 1 tab PO DAILY 06/30/15 [History] Triamterene/Hydrochlorothiazid [Triamterene-HCTZ 37.5-25 MG] 25 - 37.5 tab PO DAILY 06/30/15 [History] Ubidecarenone [Co Q-10] 100 mg PO DAILY 06/30/15 [History] atorvaSTATin Calcium [Atorvastatin Calcium] 10 mg PO DAILY 06/30/15 [History] Fish Oil/[place]-3 Fatty Acids [Fish Oil 1,000 MG] 0 mg PO DAILY 06/17/17 [History ] Patient Handouts: Diverticulosis, Rectal Bleeding, [id number] Referrals: [facility] [Outside] Jerzy Lin MD [Primary Care Provider] - 02/13/18 2:45 pm - Discharge Summary/Plan Comment DC Time >30 min.: No Discharge Summary/Plan Comment: Discharge Diagnoses; Lower GI bleeding Diverticulosis HTN Dyslipidemia Grace was admitted and monitored due to bright red blood per rectum. She had 2 small stools with shine blood when she was admitted. Dr Carty was consulted and recommended barium enema. This was completed and patient had one small stool with scant blood noted. Patient hgb has remained stable at 11.5 and she continues to be asymptomatic. She has had no abdominal pain. Abdominal CT revealed chronic constipation but no obvious source of rectal bleeding. barium enema showed diverticulosis, but otherwise unremarkable. She was very eager to be discharged today. She is tolerating [place] diet and eager to eat and leave for home. Dr Carty recommends follow up with PCP, colonscopy is not necessary at this time. She is to return to ED or clinic if concerns should arise. She will see PCP Dr Lin for hospital follow up. - General Info Date of Service: 02/05/18 Admission Dx/Problem (Free Text: Admission Diagnosis/Problem Admission Diagnosis/Problem Bright red blood per rectum Subjective Update: Feeling great this morning, asking to eat and go home. NO chest pain, palpitations or abdominal pain. Functional Status: Reports: Pain Controlled, Tolerating Diet, Ambulating, Urinating - Review of Systems General: Reports: No Symptoms. Denies: Fever, Weakness, Fatigue, Malaise HEENT: Reports: No Symptoms. Denies: Headaches, Sore Throat, Visual Changes Pulmonary: Reports: No Symptoms. Denies: Shortness of Breath, Cough, Sputum Cardiovascular: Reports: No Symptoms. Denies: Chest Pain, Palpitations, Edema Gastrointestinal: Reports: No Symptoms. Denies: Abdominal Pain, Nausea, Vomiting 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: Reports: No Symptoms. Denies: Dysuria, Frequency, Burning Musculoskeletal: Reports: No Symptoms Skin: Reports: No Symptoms Neurological: Reports: No Symptoms Psychiatric: Reports: No Symptoms - Patient Data Vitals - Most Recent: Last Vital Signs Temp 98.2 F 02/05/18 07:49 Pulse 66 02/05/18 07:49 Resp 20 02/05/18 07:49 BP 123/86 02/05/18 07:49 Pulse Ox 92 L 02/05/18 07:49 Weight - Most Recent: 77.2 kg I&O - Last 24 hours: Intake & Output 02/04/18 02/05/18 02/05/18 22:59 06:59 14:59 Intake Total 909 150 Output Total 2300 1350 Balance -1391 -1200 Lab Results - Last 24 hrs: Laboratory Results - last 24 hr 02/04/18 02/05/18 02/05/18 Range/Units 12:17 05:30 05:30 WBC 6.06 (4.0-11.0) K/uL RBC 3.83 L (4.30-5.90) M/uL Hgb 11.5 L 11.5 L (12.0-16.0) g/dL Hct 34.3 L (36.0-46.0) % MCV 89.6 (80.0-98.0) fL MCH 30.0 (27.0-32.0) pg MCHC 33.5 (31.0-37.0) g/dL RDW Std Deviation 47.6 (28.0-62.0) fl RDW Coeff of Alexis 15 (11.0-15.0) % Plt Count 208 (150-400) K/uL MPV 10.90 (7.40-12.00) fL Neut % (Auto) 73.9 (48.0-80.0) % Lymph % (Auto) 15.0 L (16.0-40.0) % [place] % (Auto) 8.6 (0.0-15.0) % Eos % (Auto) 2.0 (0.0-7.0) % Baso % (Auto) 0.5 (0.0-1.5) % Neut # (Auto) 4.5 (1.4-5.7) K/uL Lymph # (Auto) 0.9 (0.6-2.4) K/uL [place] # (Auto) 0.5 (0.0-0.8) K/uL Eos # (Auto) 0.1 (0.0-0.7) K/uL Baso # (Auto) 0.0 (0.0-0.1) K/uL Nucleated RBC % 0.0 /100WBC Nucleated RBCs # 0 K/uL Sodium 139 (136-145) mmol/L Potassium 3.9 (3.5-5.1) mmol/L Chloride 105 (98-107) mmol/L Carbon Dioxide 25.3 (21.0-32.0) mmol/L BUN 14 (7.0-18.0) mg/dL Creatinine 1.1 H (0.6-1.0) mg/dL Est Cr Clr Drug Dosing 38.90 mL/min Estimated GFR (MDRD) 47.7 ml/min Glucose 127 H (74-106) mg/dL Calcium 8.7 (8.5-10.1) mg/dL Med Orders - Current: Current Medications Acetaminophen (Tylenol) 650 mg PO Q4H PRN PRN Reason: Pain Atorvastatin Calcium (Lipitor) 10 mg PO DAILY [facility] Last Admin: 02/05/18 08:43 Dose: 10 mg Fish Oil (Fish Oil) 1 gm PO DAILY [facility] [place] Last Admin: 02/05/18 08:42 Dose: 1 gm Multivitamins/Minerals (Thera M Plus) 1 tab PO DAILY [facility] [place] Last Admin: 02/05/18 08:43 Dose: 1 tab Triamterene/HCTZ (Maxzide 25-37.5 Mg) 1 each PO DAILY [facility] [place] Last Admin: 02/05/18 08:43 Dose: 1 each Discontinued Medications Sodium Chloride (Normal Saline) 1,000 mls @ 999 mls/hr IV STAT ONE Stop: 02/03/18 20:31 Last Infusion: 02/03/18 20:08 Dose: 700 mls/hr Sodium Chloride (Normal Saline) 1,000 mls @ 125 mls/hr IV ASDIRECTED [facility] Last Admin: 02/04/18 06:48 Dose: 125 mls/hr - Exam General: Reports: Alert, Oriented, Cooperative, No Acute Distress Neck: Reports: Supple Lungs: Reports: Clear to Auscultation, Normal Respiratory Effort Cardiovascular: Reports: Regular Rate, Regular Rhythm GI/Abdominal Exam: Normal Bowel Sounds, Soft, Non-Tender, No Organomegaly, No Distention, No Abnormal Bruit, No Mass, Pelvis Stable Neurological: Reports: No New Focal Deficit Psy/Mental Status: Reports: Alert, Normal Affect, Normal Mood
--- NOTE | 2018-02-05 10:02 | PCM.CONSN ---
- General Info Date of Service: 02/05/18 Functional Status: Reports: Tolerating Diet, Ambulating, Urinating. Denies: New Symptoms - Review of Systems General: Denies: Fever, Weakness, Fatigue HEENT: Reports: No Symptoms Pulmonary: Denies: Shortness of Breath Cardiovascular: Denies: Chest Pain Gastrointestinal: Denies: Abdominal Pain, Hematochezia, Melena, Nausea, Vomiting 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: Reports: No Symptoms Musculoskeletal: Reports: No Symptoms Skin: Reports: No Symptoms Neurological: Reports: No Symptoms Psychiatric: Reports: No Symptoms - Patient Data Vitals - Most Recent: Last Vital Signs Temp 98.2 F 02/05/18 07:49 Pulse 66 02/05/18 07:49 Resp 20 02/05/18 07:49 BP 123/86 02/05/18 07:49 Pulse Ox 92 L 02/05/18 07:49 Weight - Most Recent: 170 lb 3.15 oz I&O - Last 24 Hours: Intake & Output 02/04/18 02/05/18 02/05/18 19:59 03:59 11:59 Intake Total 909 150 Output Total 2300 1350 Balance -1391 -1200 Lab Results Last 24 Hours: Laboratory Results - last 24 hr 02/04/18 02/05/18 02/05/18 Range/Units 12:17 05:30 05:30 WBC 6.06 (4.0-11.0) K/uL RBC 3.83 L (4.30-5.90) M/uL Hgb 11.5 L 11.5 L (12.0-16.0) g/dL Hct 34.3 L (36.0-46.0) % MCV 89.6 (80.0-98.0) fL MCH 30.0 (27.0-32.0) pg MCHC 33.5 (31.0-37.0) g/dL RDW Std Deviation 47.6 (28.0-62.0) fl RDW Coeff of Alexis 15 (11.0-15.0) % Plt Count 208 (150-400) K/uL MPV 10.90 (7.40-12.00) fL Neut % (Auto) 73.9 (48.0-80.0) % Lymph % (Auto) 15.0 L (16.0-40.0) % Wood % (Auto) 8.6 (0.0-15.0) % Eos % (Auto) 2.0 (0.0-7.0) % Baso % (Auto) 0.5 (0.0-1.5) % Neut # (Auto) 4.5 (1.4-5.7) K/uL Lymph # (Auto) 0.9 (0.6-2.4) K/uL Wood # (Auto) 0.5 (0.0-0.8) K/uL Eos # (Auto) 0.1 (0.0-0.7) K/uL Baso # (Auto) 0.0 (0.0-0.1) K/uL Nucleated RBC % 0.0 /100WBC Nucleated RBCs # 0 K/uL Sodium 139 (136-145) mmol/L Potassium 3.9 (3.5-5.1) mmol/L Chloride 105 (98-107) mmol/L Carbon Dioxide 25.3 (21.0-32.0) mmol/L BUN 14 (7.0-18.0) mg/dL Creatinine 1.1 H (0.6-1.0) mg/dL Est Cr Clr Drug Dosing 38.90 mL/min Estimated GFR (MDRD) 47.7 ml/min Glucose 127 H (74-106) mg/dL Calcium 8.7 (8.5-10.1) mg/dL Med Orders - Current: Current Medications Acetaminophen (Tylenol) 650 mg PO Q4H PRN PRN Reason: Pain Atorvastatin Calcium (Lipitor) 10 mg PO DAILY [facility] Last Admin: 02/05/18 08:43 Dose: 10 mg Fish Oil (Fish Oil) 1 gm PO DAILY [facility] Last Admin: 02/05/18 08:42 Dose: 1 gm Multivitamins/Minerals (Thera M Plus) 1 tab PO DAILY [facility] Last Admin: 02/05/18 08:43 Dose: 1 tab Triamterene/HCTZ (Maxzide 25-37.5 Mg) 1 each PO DAILY [facility] Last Admin: 02/05/18 08:43 Dose: 1 each Discontinued Medications Sodium Chloride (Normal Saline) 1,000 mls @ 999 mls/hr IV STAT ONE Stop: 02/03/18 20:31 Last Infusion: 02/03/18 20:08 Dose: 700 mls/hr Sodium Chloride (Normal Saline) 1,000 mls @ 125 mls/hr IV ASDIRECTED EMILIA Last Admin: 02/04/18 06:48 Dose: 125 mls/hr - Exam General: Alert, Oriented, Cooperative, No Acute Distress HEENT: Pupils Equal, Pupils Reactive. No: Scleral Icterus Neck: Supple Lungs: Clear to Auscultation, Normal Respiratory Effort Cardiovascular: Regular Rate, Regular Rhythm. No: Tachycardia GI/Abdominal Exam: Normal Bowel Sounds, Soft, Non-Tender (Female) Exam: Deferred Back Exam: Normal Inspection Extremities: Normal Inspection Skin: Warm, Dry, Intact Psy/Mental Status: Alert, Normal Affect, Normal Mood Consult PN Assessment/Plan Procedures: Procedures ALANINE AMINO (ALT) (SGPT) (04/21/16) COLONOSCOPY AND BIOPSY (07/01/15) COMP SCREEN MAMMOGRAM ADD-ON (06/13/16) COMPLETE CBC W/AUTO DIFF WBC (06/18/17) COMPREHEN METABOLIC PANEL (06/18/17) CT ABD & PELVIS W/O CONTRAST (06/18/17) ELECTROCARDIOGRAM TRACING (06/18/17) EMERGENCY DEPT VISIT (06/26/17) EMERGENCY DEPT VISIT (06/18/17) EMERGENCY DEPT VISIT (06/17/17) LIPID PANEL (03/26/17) METABOLIC PANEL TOTAL CA (04/21/16) PROTHROMBIN TIME (06/18/17) PT EVAL LOW COMPLEX 20 MIN (06/18/17) ROUTINE VENIPUNCTURE (06/18/17) URINALYSIS AUTO W/SCOPE (06/18/17) X-RAY EXAM HIP UNI 2-3 VIEWS (06/17/17) X-RAY EXAM L-S SPINE 2/3 VWS (04/20/16) X-RAY EXAM OF FEMUR 2/> (06/18/17) X-RAY EXAM OF PELVIS (04/20/16) (1) Bright red blood per rectum SNOMED Code(s): 153097100 Code(s): K62.5 - HEMORRHAGE OF ANUS AND RECTUM Priority: High Current Visit: Yes (2) HTN (hypertension) SNOMED Code(s): 92456915 Code(s): I10 - ESSENTIAL (PRIMARY) HYPERTENSION Priority: Medium Current Visit: Yes (3) Diverticulosis large intestine w/o perforation or abscess w/bleeding SNOMED Code(s): 2311293 Code(s): K57.31 - DVRTCLOS OF LG INT W/O PERFORATION OR ABSCESS W BLEEDING Priority: Medium Current Visit: Yes Problem List Initiated/Reviewed/Updated: Yes Plan: No further episodes of bleeding. Hgb stable at 11.5. Feel patient is stable for discharge. Should follow up with Primary Physician. Does not need colonoscopy at this time.
== END 2018-02-05 10:50 | disposition home or self-care (01) | DRG 379 ==
LOC: MW.ED 19:20 → MW.MS 21:29
PROVIDERS: ADMIT Internal Medicine; ATTEND Internal Medicine
PROC: BD14YZZ Fluoroscopy of Colon using Other Contrast (ICD-10-PCS; principal; 2018-02-03)
DX: K92.1 Melena (principal); K62.5 Hemorrhage of anus and rectum; E78.00 Pure hypercholesterolemia, unspecified; N28.1 Cyst of kidney, acquired; I71.2 Thoracic aortic aneurysm, without rupture; I10 Essential (primary) hypertension; E78.5 Hyperlipidemia, unspecified; Z86.010 Personal history of colon polyps; Z79.899 Other long term (current) drug therapy; K57.30 Diverticulosis of large intestine without perforation or abscess without bleeding; F17.200 Nicotine dependence, unspecified, uncomplicated
CPT/HCPCS: 36415; 74176; 80053; 82272; 85025; 96360; 96361; 99285; J7040; 74283; 74283-26; 80048; 85018; A9270-GY

== ENCOUNTER 2018-11-10 10:16 | Emergency (ER) | payer BC, MEDICARE, OTHER ==
[2018-11-10] MEDS ORDERED: EPINEPHrine 1:10,000 1 MG/10 ML Syringe IV ONE (10:17)
[2018-11-10] MEDS ORDERED: Amiodarone 150 MG/3 ML SDV IV ONE ×2 (10:17)
[2018-11-10] MEDS ORDERED: Sodium Bicarbonate 8.4% 50 MEQ/50 ML Syringe IV ONE (10:17)
--- NOTE | 2018-11-10 10:38 | PCM.SN ---
- Free Text/Narrative Note: Patient is an 82 year old female who was found down at 9:30 this morning. EMS was called. On arrival she had PEA and was pulseless. They placed an IO line. CPR was started. She was given a total of 7mg of epinephrine, 50 of bicarb, and 450mg of amiodarone. Recheck of her rhythm always showed PEA and they did not get a pulse back. She was brought into the ER and CPR was continued. Rhythm check again showed PEA and there was no pulse. She was given 1mg of epinephrine. 2 more minutes of CPR were given. There was still no pulse. Dr. Lui performed a physical exam and her pupils were fixed and dilated with no corneal reflex. There were no spontaneous breaths. We both agreed to stop CPR. Time of was 10:24 am.
--- NOTE | 2018-11-10 10:39 | EDM.PDOC ---
ED HPI GENERAL MEDICAL PROBLEM - General Source of Information: Reports: EMS History Limitations: Reports: Other (CPR in progress) - General Chief Complaint: CPR in Progress Stated Complaint: KATHIE REBOLLEDO Time Seen by Provider: 11/10/18 10:30 - History of Present Illness INITIAL COMMENTS - FREE TEXT/NARRATIVE: HISTORY AND PHYSICAL: History of present illness: Kathie Rebolledo was called [employer]. No information from EMS was obtained [employer]. Dr Teresa and Niyah were at bedside assisting with Code. Patient arrived to ER with CPR in progress per EMS. EMS reports that the daughter had heard a loud down stairs and she had found her mother on the floor. The daughter initiated CPR and 911 was called at approximately 0935. Daughter states that she believes the patient hit her head on the chimney, as she did have a laceration to the upper left forehead. When EMS arrived on scene they continued CPR, multiple rounds of epinephrine and sodium bicarbonate were given. 1 shock was administered. EMS reports that they only had PEA on the monitor, did not regain pulses. Upon patient arrival CPR continued with one round of epinephrine and sodium bicarb given per ACLS guidelines. Remained pulses. AED did not advise patient to be shocked. Code was called by Dr Teresa/Niyah, patient at 1022. After reviewing the patient's past medical record it appears that she has PMH of hypertension, elevated cholesterol, and anemia. Dr Hardin was also involved in this case. Family has been notified. Physical exam: HEENT: Pupils fixed and dilated bilaterally. Patient had a foody emesis [employer]. No corneal reflex. Lungs: Intubation tube inplace; bilateral lung sounds with ventilation Heart: PEA on monitor. Pulseless. No cardiac activity in between CPR rounds Abdomen: Soft to touch. No palpable masses or hernias. Skin: Cool to touch, dusky palor. Laceration/abrasion to upper left forehead. No lesions or rashes noted. Extremities: No open wounds or deformities noted. Neuro: Pupils fixed and dilated Impression: Cardiopulmonary Arrest/ Definitive disposition and diagnosis as appropriate pending reevaluation and review of above. (Woody Pryor) - Related Data Allergies Allergy/AdvReac Type Severity Reaction Status Date / Time No Known Allergies Allergy Verified 02/03/18 19:27 Home Meds: Home Meds Flaxseed Oil 1,000 mg PO DAILY 06/30/15 [History] Multivitamin [Multivitamins] 1 tab PO DAILY 06/30/15 [History] Triamterene/Hydrochlorothiazid [Triamterene-HCTZ 37.5-25 MG] 25 - 37.5 tab PO DAILY 06/30/15 [History] Ubidecarenone [Co Q-10] 100 mg PO DAILY 06/30/15 [History] atorvaSTATin Calcium [Atorvastatin Calcium] 10 mg PO DAILY 06/30/15 [History] Fish Oil/[place]-3 Fatty Acids [Fish Oil 1,000 MG] 0 mg PO DAILY 06/17/17 [History ] Past Medical History - Past Health History Medical/Surgical History: Denies Medical/Surgical History Other HEENT History: wears glasses, has top and bottom dentures Cardiovascular History: Reports: High Cholesterol, Hypertension Gastrointestinal History: Reports: None 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 History: Reports: None [employer] History: Reports: Neurological History: Reports: None Psychiatric History: Reports: None Endocrine/Metabolic History: Reports: None Hematologic History: Reports: Anemia Other Hematologic History: states bleeds easily, had transfusion after hysterectomy 40 yrs ago Oncologic (Cancer) History: Reports: None Dermatologic History: Reports: None - Infectious Disease History Infectious Disease History: Reports: Chicken Pox, Mumps, Rubella, Scarlet Fever - Past Surgical History HEENT Surgical History: Reports: Cataract Surgery Cardiovascular Surgical History: Reports: None GI Surgical History: Reports: Appendectomy Female Surgical History: Reports: Hysterectomy Social & Family History - Family History Family Medical History: Noncontributory - Caffeine Use Caffeine Use: Reports: Coffee Caffeine Use Comment: 1-2pots/day ED ROS GENERAL - Review of Systems Review Of Systems: See Below (CPR in progress) ED EXAM, CPR - Physical Exam Exam: See Below (See dictation) Departure - Departure Time of Disposition: 10:22 Preliminary Cause of *Q: Cardiac Arrest - Departure Disposition: 20 Clinical Impression: Cardiopulmonary arrest - Discharge Information Referrals: PCP,None [Primary Care Provider] - Forms: ED Department Discharge
== END 2018-11-10 11:55 | disposition expired ==
LOC: MW.ED 10:16
DX: I46.9 Cardiac arrest, cause unspecified (principal); E78.00 Pure hypercholesterolemia, unspecified; I10 Essential (primary) hypertension; Z79.899 Other long term (current) drug therapy
CPT/HCPCS: 92950; 99285; J0171; J0282